=== PATIENT | female | born 1930 | race Caucasian/White ===

== ENCOUNTER 2016-07-21 06:14 | Inpatient (IN) | payer MEDICARE, BC ==
[2016-07-21 06:19] LABS: Glucose,Whole Blood 146 mg/dL (75-99)
--- NOTE | 2016-07-21 06:20 | ED ---
General Adult HPI - General Source: RN notes reviewed <Howie Cloud - Last Filed: 07/21/16 06:28> <Sim Rodriguez - Last Filed: 07/21/16 11:27> - General Stated complaint: poss stroke Time Seen by Provider: 07/21/16 06:15 - History of Present Illness Initial comments: This is an 85-year-old female presents to the emergency department after having been found on the ground. According to family she was altered mentally and she was last seen normal between 8 and 9:00 last evening. Patient is unable to give us any history currently there is no family members there. 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 I could not get the patient to move either leg because she did not understand me. I see no obvious signs of trauma other than the swelling and tenderness to the right elbow. I have no other history at this time. (Howie Cloud) - Related Data Home Medications Medication Instructions Recorded Confirmed Sertraline HCl [Zoloft] 50 mg PO DAILY 11/16/13 07/21/16 Simvastatin [Zocor] 40 mg PO HS 11/16/13 07/21/16 Aspirin 81 mg PO AC-SUPPER 02/03/15 07/21/16 Levothyroxine Sodium [Synthroid] 25 mcg PO HS 02/03/15 07/21/16 Metoprolol Tartrate [Lopressor] 50 mg PO BID 02/03/15 07/21/16 Potassium Chloride ER [K-Dur 20] 20 meq PO DAILY 07/28/15 07/21/16 levETIRAcetam [Levetiracetam] 500 mg PO BID 07/28/15 07/21/16 Fluorometholone [Fml Forte] 5 ml OP DAILY 07/21/16 07/21/16 Hydrocortisone Pr Cream 1 applic RECTAL BID 07/21/16 07/21/16 [Proctosol-Hc 2.5%] Naproxen [Naprosyn] 375 mg PO BID 07/21/16 07/21/16 Previous Rx's Medication Instructions Recorded Furosemide [Lasix] 20 mg PO DAILY #30 tablet 11/20/13 Losartan [Cozaar] 50 mg PO BID #60 tab 11/20/13 Allergies Allergy/AdvReac Type Severity Reaction Status Date / Time codeine Allergy Unknown Verified 07/27/15 20:53 Review of Systems ROS Other: All systems not noted in ROS Statement are negative. <CloudHowie - Last Filed: 07/21/16 06:28> ROS Other: All systems not noted in ROS Statement are negative. <Sim Rodriguez - Last Filed: 07/21/16 11:27> ROS Statement: Those systems with pertinent positive or pertinent negative responses have been documented in the HPI. Past Medical History Past Medical History: Coronary Artery Disease (CAD), Cancer, CVA/TIA, Dementia, Eye Disorder, Hyperlipidemia, Hypertension, Thyroid Disorder Additional Past Medical History / Comment(s): macular degeneration, NO HEARING IN LEFT EAR History of Any Multi-Drug Resistant Organisms: None Reported Past Surgical History: Breast Surgery, Joint Replacement Additional Past Surgical History / Comment(s): left hip replacement, right masectomy Past Psychological History: Depression Smoking Status: Never smoker Past Alcohol Use History: None Reported Past Drug Use History: None Reported - Past Family History Mother History Unknown: Yes <Howie Cloud - Last Filed: 07/21/16 06:28> General Exam <Howie Cloud - Last Filed: 07/21/16 06:28> <Sim Rodriguez - Last Filed: 07/21/16 11:27> - General Exam Comments Initial Comments: GENERAL: Patient is well-developed and well-nourished. Patient is nontoxic and well- hydrated and is in mild distress. ENT: Neck is soft and supple. No significant lymphadenopathy is noted. Oropharynx is clear. Moist mucous membranes. Neck has full range of motion without eliciting any pain. EYES: The sclera were anicteric and conjunctiva were pink and moist. Extraocular movements were intact and pupils were equal round and reactive to light. Eyelids were unremarkable. PULMONARY: Unlabored respirations. Good breath sounds bilaterally. No audible rales rhonchi or wheezing was noted. CARDIOVASCULAR: There is a regular rate and rhythm without any murmurs gallops or rubs. ABDOMEN: Soft and nontender with normal bowel sounds. No palpable organomegaly was noted. There is no palpable pulsatile mass. SKIN: Skin is clear with no lesions or rashes and otherwise unremarkable. NEUROLOGIC: Patient is alert and oriented 0. Difficult to assess motor and sensor because patient does not follow commands and difficult to assess speech. She is not answering my questions. MUSCULOSKELETAL: No lower extremity swelling or edema. No calf tenderness. LYMPHATICS: No significant lymphadenopathy is noted PSYCHIATRIC: Unable to assess (Howie lCoud) Course <Howie Cloud - Last Filed: 07/21/16 06:28> <Sim Rodriguez - Last Filed: 07/21/16 11:27> Vital Signs 07/21/16 07/21/16 07/21/16 06:23 08:02 09:22 Temperature 97.1 F L Pulse Rate 80 82 73 Respiratory 18 18 18 Rate Blood Pressure 195/88 182/83 147/74 O2 Sat by Pulse 99 98 97 Oximetry 07/21/16 10:11 Temperature Pulse Rate 67 Respiratory 18 Rate Blood Pressure 156/75 O2 Sat by Pulse 96 Oximetry - Reevaluation(s) Reevaluation #1: 07/21/16 07:38 Upon arrival back from CAT scan patient does appear to be moving her right side she does complain of right elbow pain. (Sim Rodriguez) Reevaluation #2: 07/21/16 11:24 I did reevaluate patient several occasions and did discuss the findings with her and her daughter. The patient has no idea what happened this morning as far as falling she's not sure that she passed out or slipped or tripped. Patient is more confused than her usual state per the daughter. Patient will be admitted with evaluation by orthopedics. She is demonstrating dehydration. She'll be rehydrated. At this time a sling will be placed to the right upper extremity. (Sim Rodriguez) Medical Decision Making <Howie Cloud - Last Filed: 07/21/16 06:28> - Lab Data Result diagrams: 07/21/16 07:00 07/21/16 07:00 <Sim Rodriguez - Last Filed: 07/21/16 11:27> - Medical Decision Making EKG shows a sinus rhythm with occasional PACs 74 bpm. It was on her 66 QRS is 78 QT interval 396 QTC is 439. Patient's EKG shows no ST segment elevation or depression or T wave abnormalities are noted Dr. Rodriguez be taken over the care of this patient at 7 AM (Howie Cloud) - Lab Data Lab Results 07/21/16 07/21/16 07/21/16 Range/Units 06:18 07:00 07:00 WBC 24.3 H (3.8-10.6) k/uL RBC 6.20 H (3.80-5.40) m/uL Hgb 13.2 (11.4-16.0) gm/dL Hct 42.3 (34.0-46.0) % MCV 68.2 L (80.0-100.0) fL MCH 21.3 L (25.0-35.0) pg MCHC 31.2 (31.0-37.0) g/dL RDW 15.5 (11.5-15.5) % Plt Count 142 L (150-450) k/uL Neutrophils % 88 % Lymphocytes % 6 % Monocytes % 4 % Eosinophils % 1 % Basophils % 0 % Neutrophils # 21.4 H (1.3-7.7) k/uL Lymphocytes # 1.5 (1.0-4.8) k/uL Monocytes # 0.9 (0-1.0) k/uL Eosinophils # 0.1 (0-0.7) k/uL Basophils # 0.1 (0-0.2) k/uL Toxic Granulation Present Large Platelets Present Hypochromasia Moderate Poikilocytosis Slight Microcytosis Marked Tear Drop Cells Present Ovalocytes Present PT (9.0-12.0) sec INR (<1.1) APTT (22.0-30.0) sec Sodium (137-145) mmol/L Potassium (3.5-5.1) mmol/L Chloride (98-107) mmol/L Carbon Dioxide (22-30) mmol/L Anion Gap mmol/L BUN (7-17) mg/dL Creatinine (0.52-1.04) mg/dL Est GFR (MDRD) Af Amer (>60 ml/min/1.73 sqM) Est GFR (MDRD) Non-Af (>60 ml/min/1.73 sqM) Glucose (74-99) mg/dL POC Glucose (mg/dL) 146 H (75-99) mg/dL POC Glu Fire Technology Instructor ID Anger, Alondra Calcium (8.4-10.2) mg/dL Total Bilirubin (0.2-1.3) mg/dL AST (14-36) U/L ALT (9-52) U/L Alkaline Phosphatase (38-126) U/L Total Creatine Kinase 91 (30-135) U/L CK-MB (CK-2) 2.4 (0.0-2.4) ng/mL CK-MB (CK-2) Rel Index 2.6 Troponin I <0.012 (0.000-0.034) ng/mL Total Protein (6.3-8.2) g/dL Albumin (3.5-5.0) g/dL Urine Color Urine Appearance (Clear) Urine pH (5.0-8.0) Ur Specific [place] (1.001-1.035) Urine Protein (Negative) Urine Glucose (UA) (Negative) Urine Ketones (Negative) Urine Blood (Negative) Urine Nitrate (Negative) Urine Bilirubin (Negative) Urine Urobilinogen (<2.0) mg/dL Ur Leukocyte Esterase (Negative) 07/21/16 07/21/16 07/21/16 Range/Units 07:00 07:00 07:10 WBC (3.8-10.6) k/uL RBC (3.80-5.40) m/uL Hgb (11.4-16.0) gm/dL Hct (34.0-46.0) % MCV (80.0-100.0) fL MCH (25.0-35.0) pg MCHC (31.0-37.0) g/dL RDW (11.5-15.5) % Plt Count (150-450) k/uL Neutrophils % % Lymphocytes % % Monocytes % % Eosinophils % % Basophils % % Neutrophils # (1.3-7.7) k/uL Lymphocytes # (1.0-4.8) k/uL Monocytes # (0-1.0) k/uL Eosinophils # (0-0.7) k/uL Basophils # (0-0.2) k/uL Toxic Granulation Large Platelets Hypochromasia Poikilocytosis Microcytosis Tear Drop Cells Ovalocytes PT 11.1 (9.0-12.0) sec INR 1.1 (<1.1) APTT 24.8 (22.0-30.0) sec Sodium 140 (137-145) mmol/L Potassium 4.2 (3.5-5.1) mmol/L Chloride 103 (98-107) mmol/L Carbon Dioxide 22 (22-30) mmol/L Anion Gap 15 mmol/L BUN 27 H (7-17) mg/dL Creatinine 0.83 (0.52-1.04) mg/dL Est GFR (MDRD) Af Amer >60 (>60 ml/min/1.73 sqM) Est GFR (MDRD) Non-Af >60 (>60 ml/min/1.73 sqM) Glucose 147 H (74-99) mg/dL POC Glucose (mg/dL) (75-99) mg/dL POC Glu Fire Technology Instructor ID Calcium 9.7 (8.4-10.2) mg/dL Total Bilirubin 0.8 (0.2-1.3) mg/dL AST 24 (14-36) U/L ALT 34 (9-52) U/L Alkaline Phosphatase 98 (38-126) U/L Total Creatine Kinase (30-135) U/L CK-MB (CK-2) (0.0-2.4) ng/mL CK-MB (CK-2) Rel Index Troponin I (0.000-0.034) ng/mL Total Protein 7.2 (6.3-8.2) g/dL Albumin 4.2 (3.5-5.0) g/dL Urine Color Light Yellow Urine Appearance Clear (Clear) Urine pH 6.0 (5.0-8.0) Ur Specific [place] 1.006 (1.001-1.035) Urine Protein Negative (Negative) Urine Glucose (UA) Negative (Negative) Urine Ketones 1+ H (Negative) Urine Blood Negative (Negative) Urine Nitrate Negative (Negative) Urine Bilirubin Negative (Negative) Urine Urobilinogen <2.0 (<2.0) mg/dL Ur Leukocyte Esterase Negative (Negative) Disposition <Howie Cloud - Last Filed: 07/21/16 06:28> <Sim Rodriguez - Last Filed: 07/21/16 11:27> Clinical Impression: Syncope, Encephalopathy, Elbow fracture, right, Dehydration, Dementia Disposition: ADMITTED IP TO THIS [facility] Condition: Stable
--- NOTE | 2016-07-21 07:06 | CT ---
EXAMINATION TYPE: CT brain wo con DATE OF EXAM: 07/21/2016 6:51 AM COMPARISON: 04/07/2016 HISTORY: fall, neuro deficits CT DLP: 1144.70 mGycm Automated exposure control for dose reduction was used. FINDINGS: No definite depressed skull fracture or significant cephalohematoma is noted. The cortical sulci and ventricles are prominent with age-related atrophic changes of brain. Old infar ction changes with encephalomalacia changes are noted in the bifrontal areas of brain was on the left side. Chronic periventricular white matter ischemic changes are noted bilaterally. Old infarction an d encephalomalacia changes are also noted in the bilateral temporal lobes of brain was on the left si de. There is no acute intracranial hemorrhage, mass effect, or midline shift identified. The globes are intact and the visualized sinuses are clear. Chronic mastoiditis changes are again noted on the right side with possible chronic orchitis media. M ild ethmoid sinusitis changes are also suggested. IMPRESSION: No acute intracranial hemorrhage, mass effect, or midline shift is seen. Severe atrophic changes of brain. Multiple areas of old infarctions in the brain with encephalomalacia changes without significant inte rval change. Chronic mastoiditis and otitis media changes. No significant interval change. If clinical symptoms persist a follow-up in 24 to 48 hours may be helpful.
--- NOTE | 2016-07-21 07:13 | XR ---
EXAMINATION TYPE: XR chest 2V DATE OF EXAM: 07/21/2016 7:07 AM COMPARISON: Chest x-ray April 07, 2016 HISTORY: Fall injury with chest pain. TECHNIQUE: Frontal and lateral views of the chest are obtained. FINDINGS: There is chronic senescent change without suspicious focal air space opacity, pleural effu toma, or pneumothorax seen. The cardiac silhouette size is stable and upper limits of normal with ec tatic aorta causing tracheal deviation redemonstrated. Osseous structures are demineralized. Underlyi ng scoliosis is again seen. IMPRESSION: Chronic parenchymal change without acute pulmonary process.
--- NOTE | 2016-07-21 07:15 | XR ---
EXAMINATION TYPE: XR pelvis AP view DATE OF EXAM: 07/21/2016 7:07 AM CLINICAL HISTORY: Pelvic pain after fall injury. TECHNIQUE: 2 AP portable views of the pelvis are obtained COMPARISON: Pelvic x-ray April 07, 2016 FINDINGS: Large body habitus, portable technique, and diffuse osteopenia makes evaluation suboptimal . There is metallic hardware from left hip total arthroplasty redemonstrated. Heterotopic ossificatio n or chronic ununited fracture fragment along the superior left hip joint is redemonstrated. No visua lized periprosthetic fracture though the distal stem of the prosthesis is excluded from view. There i s moderate to severe degenerative change at the right hip redemonstrated with joint space loss, subch ondral cystic change, and acetabular spurring. No displaced fracture seen. Sacroiliac joints are symm etric and felt within normal limits. Pubic symphysis is maintained. Some fecal prominence at level of rectum is noted. IMPRESSION: There is no acute fracture or dislocation in the pelvis.
--- NOTE | 2016-07-21 07:18 | XR ---
EXAMINATION TYPE: XR elbow complete RT DATE OF EXAM: 07/21/2016 7:07 AM CLINICAL HISTORY: Fall injury with pain. TECHNIQUE: Frontal, lateral and oblique images of the right elbow are obtained. COMPARISON: None FINDINGS: Osseous structures are demineralized. There is comminuted acute minimally displaced supraco ndylar fracture of the distal humerus. Associated abnormal fat pad signs are seen. There is mild to m oderate subcutaneous edema at this level. Proximal radius and ulna are intact. No dislocation is evid ent. IMPRESSION: There is an acute comminuted minimally displaced supracondylar fracture of the distal hu merus. (Initial encounter post traumatic closed fracture)
[2016-07-21 07:34] LABS: Appearance,Urine Clear (Clear); Bilirubin,Urine Negative (Negative); Glucose,Urine (UA) Negative (Negative); Ketones,Urine 1+ (Negative); Leukocyte Esterase,Urine Negative (Negative); Nitrite,Urine Negative (Negative); Protein,Urine Negative (Negative); Specific Gravity,Urine 1.006 (1.001-1.035); UA Billing (MACRO vs. MICRO) CHEM; Urobilinogen,Urine <2.0 mg/dL (<2.0)
[2016-07-21 07:40] LABS: Basophils # (A) 0.1 k/uL (0-0.2); Basophils % (A) 0 %; CH 21.4; CHCM 31.4; Eosinophils # (A) 0.1 k/uL (0-0.7); Eosinophils % (A) 1 %; HCT 42.3 % (34.0-46.0); HDW 3.53; HGB 13.2 gm/dL (11.4-16.0); Hypochromasia Moderate; Luc # (Auto) 0.34; Luc % (Auto) 1; Lymphocytes # (A) 1.5 k/uL (1.0-4.8); Lymphocytes % (A) 6 %; MCH 21.3 pg (25.0-35.0); MCHC 31.2 g/dL (31.0-37.0); MCV 68.2 fL (80.0-100.0); Mean Platelet Volume 7.2; Microcytosis Marked; Monocytes # (A) 0.9 k/uL (0-1.0); Monocytes % (A) 4 %; Neutrophils # (A) 21.4 k/uL (1.3-7.7); Neutrophils % (A) 88 %; Poikilocytosis Slight; RDW 15.5 % (11.5-15.5); WBC 24.3 k/uL (3.8-10.6); WBC (Perox) 25.52
[2016-07-21 07:45] LABS: ALT 34 U/L (9-52); AST 24 U/L (14-36); Alkaline Phosphatase 98 U/L (38-126); Anion Gap 15 mmol/L; Blood Urea Nitrogen 27 mg/dL (7-17); Calcium 9.7 mg/dL (8.4-10.2); Carbon Dioxide 22 mmol/L (22-30); Chloride 103 mmol/L (98-107); Glucose 147 mg/dL (74-99); Non-African American GFR(MDRD) >60 (>60 ml/min/1.73 sqM); Potassium 4.2 mmol/L (3.5-5.1); Sodium 140 mmol/L (137-145); Total Bilirubin 0.8 mg/dL (0.2-1.3); Total Protein 7.2 g/dL (6.3-8.2)
[2016-07-21 07:48] LABS: INR 1.1 (<1.1); Partial Thromboplastin Time 24.8 sec (22.0-30.0); Prothrombin Time 11.1 sec (9.0-12.0)
[2016-07-21 07:58] LABS: Creatine Kinase 91 U/L (30-135)
[2016-07-21 08:12] LABS: Creatine Kinase MB 2.4 ng/mL (0.0-2.4); Troponin I <0.012 ng/mL (0.000-0.034)
[2016-07-21 08:18] LABS: Ovalocytes Present; Tear Drop Cells Present
[2016-07-21 08:19] LABS: Large Platelets Present; Toxic Granulation Present
[2016-07-21] MEDS ORDERED: NALOXONE 0.4 MG/ML 1 ML VIAL IV PRN (11:27)
[2016-07-21] MEDS ORDERED: ACETAMINOPHEN TAB 325 MG TAB PO PRN (11:27)
[2016-07-21] MEDS ORDERED: SODIUM CHLORIDE 0.9% 1,000 ML IV SCH (11:30)
[2016-07-21] MEDS: SODIUM CHLORIDE 0.9% 1,000 ML IV SCH (14:15)
--- NOTE | 2016-07-21 14:59 | P.CNOR ---
History of Present Illness - [facility] Consult date: 07/21/16 Consult reason: fracture History of present illness: The patient is an 85-year-old female who is currently admitted following a fall to internal medicine. She is a previously established patient of Dr. Ramirez in my office was performed a right total hip replacement and has been managing left hip arthritis. The patient is accompanied at bedside by her daughter who provides the history. According to the patient's daughter the patient, who lives alone, was trying to get back into bed and fell. The patient's daughter says that she used a dining chair to try to get back into bed. She was brought to the emergency department and admitted to internal medicine. At the time of my consultation she is complaining of isolated right elbow pain. The patient's daughter states that she appears confused. They have no other complaints. 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 History of Any Multi-Drug Resistant Organisms: None Reported Past Surgical History: Breast Surgery, Hysterectomy, Joint Replacement Additional Past Surgical History / Comment(s): left hip replacement, right masectomy Past Anesthesia/Blood Transfusion Reactions: No Reported Reaction Past Psychological History: Depression Smoking Status: Never smoker Past Alcohol Use History: None Reported Past Drug Use History: None Reported - Past Family History Mother History Unknown: Yes Medications and Allergies Home Medications Medication Instructions Recorded Confirmed Type Sertraline HCl [Zoloft] 50 mg PO DAILY 11/16/13 07/21/16 History Simvastatin [Zocor] 40 mg PO HS 11/16/13 07/21/16 History Aspirin 81 mg PO Q48H 02/03/15 07/21/16 History Metoprolol Tartrate [Lopressor] 50 mg PO BID 02/03/15 07/21/16 History Potassium Chloride ER [K-Dur 20] 20 meq PO DAILY 07/28/15 07/21/16 History levETIRAcetam [Levetiracetam] 500 mg PO BID 07/28/15 07/21/16 History Fluorometholone [Fml Forte] 5 ml OP DAILY 07/21/16 07/21/16 History Hydrocortisone Pr Cream 1 applic RECTAL BID 07/21/16 07/21/16 History [Proctosol-Hc 2.5%] Levothyroxine Sodium [Synthroid] 25 mcg PO DAILY 07/21/16 07/21/16 History Naproxen [Naprosyn] 375 mg PO BID 07/21/16 07/21/16 History Allergies Allergy/AdvReac Type Severity Reaction Status Date / Time codeine Allergy Unknown Verified 07/21/16 11:49 Physical Examination On exam the patient is in no apparent distress. She is slightly confused and is only able to answer questions with yes or no. Her head is normocephalic and atraumatic. She has no tenderness down her cervical or thoracic spine. She has a sling in place over her right arm. She demonstrates nonlabored breathing with symmetric chest expansion. Her abdomen is nontender. On examination of her left upper extremity there are no obvious deformities. On examination of the lower extremities there are no obvious deformities and no tenderness to palpation to both the right and left leg. A focused exam the right upper extremity was conducted. The sling was taken off and the arm was inspected. There is diffuse ecchymosis over the elbow but no open wounds. The patient has no tenderness over her right clavicle shoulder or arm. There is exquisite tenderness over the elbow. The arm and forearm are soft. She has no tenderness over her distal radius. Sensation is intact to light touch in the right arm in the distribution of the median, ulnar, and radial nerves. She is motor intact in her right arm. Results X-rays of the patient's right elbow show a minimally displaced, low transcondylar distal humerus fracture. - Labs Result Diagrams: 07/21/16 07:00 07/21/16 07:00 Assessment and Plan (1) Elbow fracture, right Status: Acute Plan: The patient has a closed, low transcondylar distal humerus fracture. I discussed different treatment options with the patient's daughter including nonoperative and operative management. Due to the patient's age, baseline level of function, and minimal displacement on x-rays I recommended an initial attempt at non-operative treatment. The patient was placed in a posterior elbow splint with the elbow at 90. She was placed back in a sling. The patient is to remain nonweightbearing on her right arm in the sling at all times. After discharge the patient will need close x-ray follow-up to nature there is no interval displacement. I would like to see her in the office 1 week following discharge for repeat x-rays. Time with Patient: Greater than 30
--- NOTE | 2016-07-21 16:15 | HP ---
DATE OF ADMISSION: CHIEF COMPLAINT: Fall at home. HISTORY OF PRESENT ILLNESS: An 85-year-old female was admitted to the hospital after evaluation in the emergency room. The patient had a fall at home, was found on the floor this morning by the son-in-law. The patient has a First Alert to which she did not respond and thus the son-in-law was checking on him. Patient was alert. She has underlying dementia, so some confusion. The family has noted some increased confusion lately. It is not exactly clear how the patient fell or whether she passed out or not. Patient is not able to give that history. Her son-in-law said the patient had moved his seat from the chair, put in on the floor and her knees were resting on that. One elbow one the bed and one elbow on side table. She has sustained a right elbow fracture. It is probable that the patient fell first, fractured her shoulder and then subsequently got up, but she could not get into the bed because it was a little on the high side. Denies any headaches or any dizziness. Past medical history is significant for mild dementia, hypertension, previous carcinoma of the breast of more than 20 years ago, previous left hip arthroplasty and has significant arthritis in the right hip. Past history is negative for any cardiac history. No stroke, no lung disease, liver disease, kidney disease, ulcers, TB, hepatitis. No history of any rheumatic fever, myocardial infarction or CVA. Has had an episode of TIA and has been told she has got a small blood vessel at the back of the brain. Past surgical history is significant for a left total hip arthroplasty x2, left leg is slightly shorter than the right on a chronic basis. The patient has significant degenerative arthritis right hip. Patient has had a previous right mastectomy and a hysterectomy. PERSONAL HISTORY: Never a smoker. Alcohol none. ALLERGIES: Sensitive to CODEINE. Medications include: 1. Levetiracetam 500 mg b.i.d. 2. Zocor 40 mg daily. 3. Sertraline 50 mg daily. 4. Potassium 20 mEq daily. 5. Naproxen 375 b.i.d. 6. Metoprolol 50 mg b.i.d. 7. Losartan 50 mg b.i.d. 8. Levothyroxine 25 mcg daily. 9. Hydrocortisone cream p.r.n. 10. Lasix 20 mg daily. 11. Fluorometholone 5 mL daily. 12. Aspirin 81 mg daily. SOCIAL HISTORY: The patient is , lives alone, daughter lives close by and checks on her daily and as-needed basis. Functional status, patient ambulatory at home. She does have issues with her short-term memory but long-term memory is good. REVIEW OF SYSTEMS: NEURO: Denies any headaches, dizziness. No double vision, blurred vision. No symptoms of syncope elicited. Present symptom of fall. CARDIAC: Denies chest pain, angina, palpitation. RESPIRATORY: Denies shortness of breath, cough, hemoptysis. GI: No nausea, vomiting, abdominal pain, diarrhea. : No symptoms of dysuria, hematuria, history of recurrent urinary tract infections. EXTREMITIES: Pain right elbow, right hip. CONSTITUTIONAL: No fever, chills. HEMATOLOGICAL: No anemia or bleeding disorder. ENDOCRINE: No history of diabetes mellitus, history of hypothyroidism on replacement therapy. HEMATOLOGIC: No anemia or bleeding disorder. ENT: Adequate hearing, smell, taste. EYES: Adequate vision. PHYSICAL EXAMINATION: Pleasant female in no distress. Vital signs reveal temperature 98.8, pulse 71, respirations 18, blood pressure was 180/83. At the time of ER visit, temperature was 97.1, blood pressure 195/88. HEENT: Normocephalic. No evidence of external trauma. Pupils reactive. Nostrils clear. Oral cavity is moist. Partial dentition present. Ears reveal no drainage. Neck reveals no JVD, carotid bruits, or thyromegaly. Chest is clear to auscultation. CARDIAC: Normal S1, S2 with no gallops. Occasional irregular beat, no murmurs appreciated. Abdomen is soft, no palpable masses. Bowel sounds normal. No organomegaly. No abdominal bruits. Extremities reveal trace edema, right more than left. Pedal pulse is mildly decreased. Left leg is slightly shorter. Neurologically awake, alert, oriented to place and recognizes her family. Moves left upper arm appropriately. Right in a splint. Lower extremities, patient able to move them freely. Plantars are bilaterally downgoing. LABORATORY ASSESSMENT: White count of 24.3, hemoglobin is 13.2, platelets 142. Electrolytes normal. BUN 27, creatinine 0.83. Hepatic and cardiac enzymes normal. Urine 1+ ketones, otherwise unremarkable. Radiological studies include a brain CT with no acute fractures, severe atrophic changes, old infarction of brain with encephalomalacia, chronic mastoiditis changes at present. Chest x-ray, chronic changes. X-ray of the elbow reveals acute comminuted minimally displaced supracondylar fracture of the distal humerus. No pelvic fractures. EKG reveals PACs. ASSESSMENT: 1. Fall at home. 2. Possible syncopal episode. 3. Hypertension. 4. Dementia. 5. Leukocytosis with no clear evidence of infection. 6. Remote history of carcinoma of the breast. PLAN: Patient admitted to the hospital and will be hydrated. Repeat patient's CBC in the morning. If the leukocytosis is fracture related causing stress, then they should improve. The patient's previous headaches had shown also elevated white count. The patient has mildly decreased platelet count as well. Patient's condition discussed with the family. Patient is going to require placement at least temporarily. Ortho to review the patient. Prognosis remains guarded.
[2016-07-21] MEDS: ASPIRIN 81 MG CHEW PO SCH (17:39)
[2016-07-21] MEDS ORDERED: LEVOTHYROXINE 25 MCG TAB PO SCH (21:00)
[2016-07-21] MEDS: ATORVASTATIN 20 MG TAB PO SCH (21:29)
[2016-07-21] MEDS: LOSARTAN 50 MG TAB PO SCH (21:29)
[2016-07-21] MEDS: NAPROXEN 250 MG TAB PO SCH (21:29)
[2016-07-21] MEDS: METOPROLOL TARTRATE 50 MG TAB PO SCH (21:29)
[2016-07-21] MEDS: HEPARIN SODIUM,PORCINE 5,000 UNIT/ML 1 ML VIAL SQ SCH (21:29)
[2016-07-21] MEDS: levETIRAcetam 500 MG TAB PO SCH (21:30)
[2016-07-22] MEDS: SODIUM CHLORIDE 0.9% 1,000 ML IV SCH ×2 (03:58→15:58)
[2016-07-22] MEDS: LEVOTHYROXINE 25 MCG TAB PO SCH (06:17)
--- NOTE | 2016-07-22 07:45 | P.PN ---
Progress Note - Text The patient is an 85-year-old female who was admitted yesterday after a fall at home in which she suffered a fractured distal right humerus. Patient does have history of mild dementia with a previous closed head injury along with hypertension and breast carcinoma. She does have arthritic concerns and previous left hip surgery. She presently resides by herself with help from her daughter. Patient has been seen by orthopedic surgery. She is alert this morning. She knows she is in the hospital although thinks she is at [facility]. She denies any chest pain or shortness of breath. No nausea or vomiting. She does remember my name. She does not appear to be in any distress. Temperature is 98.1 with a respirations of 18 and a pulse of 77 and regular. Blood pressure 119/60 and she is 96% on 2 L. Head and neck exam unremarkable. Lung and heart exam clear and regular. Abdomen is soft and nontender. No unusual lower edema. Pneumatic stockings in place. She does have a cast on the right arm but no focal deficits. Results of repeat laboratory values are pending. She did have an elevated white count of 24,000 on presentation yesterday. Once again on x-ray patient has been shown to have a distal humeral fracture on the right. Impressions and plans: Patient has been seen by orthopedics and it appears that conservative management with first attempt at nonoperative treatment. Patient will likely need further placement at discharge and this was discussed with patient. Patient desires to return to her home and this does not seem to be in her best interest. Consultations have been placed with physical and occupational therapies. Also repeat labs are pending to follow up on general chemistries and cell counts. Also consult to social service for discharge planning as hopefully patient will be ready over the next 24-48 hours.
[2016-07-22] MEDS ORDERED: FLUOROMETHOLONE OP SCH (09:00)
[2016-07-22] MEDS: POTASSIUM CHLORIDE ER 20 MEQ TAB.ER PO SCH (09:24)
[2016-07-22] MEDS: NAPROXEN 250 MG TAB PO SCH ×2 (09:24→21:48)
[2016-07-22] MEDS: FUROSEMIDE 20 MG TAB PO SCH (09:25)
[2016-07-22] MEDS: SERTRALINE 50 MG TAB PO SCH (09:25)
[2016-07-22] MEDS: HEPARIN SODIUM,PORCINE 5,000 UNIT/ML 1 ML VIAL SQ SCH ×2 (09:25→21:47)
[2016-07-22] MEDS: LOSARTAN 50 MG TAB PO SCH ×2 (09:25→21:47)
[2016-07-22] MEDS: levETIRAcetam 500 MG TAB PO SCH ×2 (09:25→21:47)
[2016-07-22] MEDS: METOPROLOL TARTRATE 50 MG TAB PO SCH ×2 (09:25→21:47)
[2016-07-22 09:31] LABS: Anisocytosis Slight; Basophils # (A) 0.1 k/uL (0-0.2); Basophils % (A) 0 %; CH 21.6; Eosinophils # (A) 0.1 k/uL (0-0.7); Eosinophils % (A) 1 %; HCT 36.7 % (34.0-46.0); HGB 11.2 gm/dL (11.4-16.0); Hypochromasia Marked; Luc # (Auto) 0.15; Luc % (Auto) 1; Lymphocytes # (A) 1.3 k/uL (1.0-4.8); Lymphocytes % (A) 10 %; MCH 21.3 pg (25.0-35.0); MCHC 30.4 g/dL (31.0-37.0); MCV 69.9 fL (80.0-100.0); Mean Platelet Volume 8.7; Microcytosis Marked; Monocytes # (A) 0.7 k/uL (0-1.0); Monocytes % (A) 6 %; Neutrophils # (A) 10.7 k/uL (1.3-7.7); Neutrophils % (A) 82 %; RBC 5.25 m/uL (3.80-5.40); RDW 16.2 % (11.5-15.5); WBC (Perox) 13.52
[2016-07-22 09:44] LABS: Anion Gap 10 mmol/L; Blood Urea Nitrogen 18 mg/dL (7-17); Calcium 8.5 mg/dL (8.4-10.2); Carbon Dioxide 23 mmol/L (22-30); Chloride 109 mmol/L (98-107); Glucose 106 mg/dL (74-99); Non-African American GFR(MDRD) >60 (>60 ml/min/1.73 sqM); Potassium 4.2 mmol/L (3.5-5.1); Sodium 142 mmol/L (137-145)
[2016-07-22] MEDS ORDERED: PNEUMOCOCCAL VACC-PNEUMOVAX 23 25 MCG/0.5 ML VIAL IM ONE (11:28)
[2016-07-22] MEDS ORDERED: INFLUENZA VACCINE (3YR+) 60 MCG/0.5 ML SYRINGE IM ONE (11:28)
[2016-07-22] MEDS: ASPIRIN 81 MG CHEW PO SCH (16:55)
[2016-07-22] MEDS: ATORVASTATIN 20 MG TAB PO SCH (21:47)
[2016-07-23] MEDS ORDERED: DONEPEZIL 5 MG TAB PO STA (07:52)
--- NOTE | 2016-07-23 07:53 | P.DS ---
Providers Date of admission: 07/21/16 11:27 Attending physician: Tien Kaur Primary care physician: Tien Kaur The patient is an 85-year-old female who suffered a fall at home and was brought in by EMS and after subsequent x-rays was found to have a fractured distal right humerus. Initial workup for her fall with EKG and labs revealed her to be in normal sinus rhythm without acute ischemic changes. Other laboratory values revealed elevated white count of 24,000 but cardiac labs with CKs and troponins were within normal limits. Subsequent radiologic evaluations with her presentation were essentially negative with brain CAT scan and chest x- ray. The x-ray of elbow though did reveal a acute comminuted minimally displaced supracondylar fracture of the distal humerus. Patient was hydrated and analgesics given. Follow-up CBC revealed decrease of her white count on the 13,000. Patient was evaluated by orthopedics Dr. Peoples. He discussed with patient and daughter operative and nonoperative management. It was overall felt that in her present condition and age than an attempt at nonoperable treatment with posterior elbow splint with elbow at 90 and a sling along with nonweightbearing on the right arm would be in order and he would follow-up as an outpatient. Patient did receive physical and occupational therapies. They are recommending subacute rehab placement. Discharge planning is involved. Patient does have multiple comorbidities which include Alzheimer's dementia late onset. Previous remote history of closed head injury. History of hypertension History of breast cancer Degenerative joint disease and previous left hip surgery. Hyperlipidemia Depression On medication for seizure prevention with Keppra since history of closed head injury. Hypothyroidism on replacement therapy. Discharge medications: Acetaminophen 650 mg every 6 hours when necessary for pain. Aspirin 81 mg daily. Atorvastatin 20 mg daily. Furosemide 20 mg daily. Levothyroxine 25 g daily. Losartan 50 mg twice a day. Metoprolol 50 mg twice a day. Naproxen 375 mg by mouth twice a day Potassium chloride 20 mEq daily. Sertraline 50 mg daily. Keppra 500 mg twice a day. Aricept 5 mg daily. Continue with physical and occupational therapies. Diet and activities as tolerated. Long-term prognosis is guarded. Patient Condition at Discharge: Stable Plan - Discharge Summary Discharge Medication List Sertraline HCl [Zoloft] 50 mg PO DAILY 11/16/13 [History] Simvastatin [Zocor] 40 mg PO HS 11/16/13 [History] Furosemide [Lasix] 20 mg PO DAILY #30 tablet 11/20/13 [Rx] Losartan [Cozaar] 50 mg PO BID #60 tab 11/20/13 [Rx] Aspirin 81 mg PO Q48H 02/03/15 [History] Metoprolol Tartrate [Lopressor] 50 mg PO BID 02/03/15 [History] Potassium Chloride ER [K-Dur 20] 20 meq PO DAILY 07/28/15 [History] levETIRAcetam [Levetiracetam] 500 mg PO BID 07/28/15 [History] Fluorometholone [Fml Forte] 5 ml OP DAILY 07/21/16 [History] Hydrocortisone Pr Cream [Proctosol-Hc 2.5%] 1 applic RECTAL BID 07/21/16 [ History] Levothyroxine Sodium [Synthroid] 25 mcg PO DAILY 07/21/16 [History] Naproxen [Naprosyn] 375 mg PO BID 07/21/16 [History] Follow up Appointment(s)/Referral(s): Tien Kaur MD [Primary Care Provider] - 1-2 days
[2016-07-23] MEDS: SERTRALINE 50 MG TAB PO SCH (08:37)
[2016-07-23] MEDS: LEVOTHYROXINE 25 MCG TAB PO SCH (08:37)
[2016-07-23] MEDS: LOSARTAN 50 MG TAB PO SCH ×2 (08:37→20:36)
[2016-07-23] MEDS: NAPROXEN 250 MG TAB PO SCH ×2 (08:38→20:36)
[2016-07-23] MEDS: FUROSEMIDE 20 MG TAB PO SCH (08:38)
[2016-07-23] MEDS: METOPROLOL TARTRATE 50 MG TAB PO SCH ×2 (08:38→20:36)
[2016-07-23] MEDS: HEPARIN SODIUM,PORCINE 5,000 UNIT/ML 1 ML VIAL SQ SCH ×2 (08:39→20:36)
[2016-07-23] MEDS: levETIRAcetam 500 MG TAB PO SCH ×2 (08:39→20:36)
[2016-07-23] MEDS: POTASSIUM CHLORIDE ER 20 MEQ TAB.ER PO SCH (08:39)
[2016-07-23] MEDS: SODIUM CHLORIDE 0.9% 1,000 ML IV SCH ×2 (08:46→20:35)
[2016-07-23] MEDS: ASPIRIN 81 MG CHEW PO SCH (17:58)
[2016-07-23] MEDS: ATORVASTATIN 20 MG TAB PO SCH (20:36)
[2016-07-24] MEDS: LEVOTHYROXINE 25 MCG TAB PO SCH (06:32)
[2016-07-24] MEDS: SODIUM CHLORIDE 0.9% 1,000 ML IV SCH (07:38)
[2016-07-24 07:49] VITALS: BP 144/77; PULSE 70; RESP 20; TEMP 98
--- NOTE | 2016-07-24 08:15 | P.PN ---
Progress Note - Text The patient is a 85-year-old female who had a fall at home and was brought by EMS to the hospital and found to have a fractured distal right humerus. Presently she has been receiving physical and occupational therapy and at this time needs subacute rehab extended care placement. This morning patient is found up in bed trying to eat her breakfast. She appears somewhat fatigued but overall alert. Denies any unusual shortness of breath or chest pain. Temperature is 98 with a pulse of 70 and respirations are 20. Blood pressure 144/77 and she is under percent saturated on 2 L. Lung and heart exam was clear and regular. Abdomen is soft and nontender. No unusual edema. No new focal neurological deficits. Right arm remains in a splint. No new diagnostic tests. At this time we're waiting discharge planning for discharge to extended care facility. Please refer to discharge summary dictated previously for meds and orders.
[2016-07-24] MEDS: FUROSEMIDE 20 MG TAB PO SCH (09:40)
[2016-07-24] MEDS: SERTRALINE 50 MG TAB PO SCH (09:40)
[2016-07-24] MEDS: POTASSIUM CHLORIDE ER 20 MEQ TAB.ER PO SCH (09:40)
[2016-07-24] MEDS: HEPARIN SODIUM,PORCINE 5,000 UNIT/ML 1 ML VIAL SQ SCH (09:40)
[2016-07-24] MEDS: METOPROLOL TARTRATE 50 MG TAB PO SCH (09:41)
[2016-07-24] MEDS: NAPROXEN 250 MG TAB PO SCH (09:41)
[2016-07-24] MEDS: levETIRAcetam 500 MG TAB PO SCH (09:42)
[2016-07-24] MEDS: LOSARTAN 50 MG TAB PO SCH (09:42)
== END 2016-07-24 12:29 | DRG 563 ==
LOC: EC 06:14 → 4MS4W 11:27
PROVIDERS: ADMIT Internal Medicine; ATTEND Internal Medicine
DX: S42.474A Nondisplaced transcondylar fracture of right humerus, initial encounter for closed fracture (principal); E86.0 Dehydration; G30.1 Alzheimer's disease with late onset; F02.80 Dementia in other diseases classified elsewhere, unspecified severity, without behavioral disturbance, psychotic disturbance, mood disturbance, and anxiety; E78.5 Hyperlipidemia, unspecified; D72.829 Elevated white blood cell count, unspecified; H35.30 Unspecified macular degeneration; I10 Essential (primary) hypertension; I25.10 Atherosclerotic heart disease of native coronary artery without angina pectoris; M16.11 Unilateral primary osteoarthritis, right hip; F32.9 Major depressive disorder, single episode, unspecified; E03.9 Hypothyroidism, unspecified; H91.92 Unspecified hearing loss, left ear; Z79.82 Long term (current) use of aspirin; Z79.899 Other long term (current) drug therapy; Z85.3 Personal history of malignant neoplasm of breast; Z88.5 Allergy status to narcotic agent; Z96.642 Presence of left artificial hip joint; W19.XXXA Unspecified fall, initial encounter; Y92.009 Unspecified place in unspecified non-institutional (private) residence as the place of occurrence of the external cause
CPT/HCPCS: 36415; 70450; 71020; 72170; 80048; 80053; 81003; 82550; 82553; 84484; 85025; 85610; 85730; 93005; 99285

== ENCOUNTER 2016-12-30 11:45 | Observation (INO) | payer MEDICARE, BC ==
[2016-12-30] MEDS ORDERED: SODIUM CHLORIDE 0.9% 1,000 ML IV STA ×2 (11:57)
--- NOTE | 2016-12-30 12:10 | ED ---
General Adult HPI - General Chief complaint: Recheck/Abnormal Lab/Rx Stated complaint: confusion Time Seen by Provider: 12/30/16 11:48 Source: patient, RN notes reviewed, old records reviewed Mode of arrival: ambulatory Limitations: altered mental status - History of Present Illness Initial comments: This is a 86-year-old female here for evaluation. Patient sent in from care facility for evaluation regarding elevated blood pressure, argumentative and combative, dark stools. Patient is also noted per staff to have hematoma as well as increased confusion. Patient sent to ER for evaluation, no blood thinners, no known history of fall. Patient is poor historian - Related Data Home Medications Medication Instructions Recorded Confirmed Sertraline HCl [Zoloft] 50 mg PO DAILY 11/16/13 12/30/16 Aspirin 81 mg PO Q48H 02/03/15 12/30/16 Metoprolol Tartrate [Lopressor] 50 mg PO BID 02/03/15 12/30/16 Potassium Chloride ER [K-Dur 20] 20 meq PO DAILY 07/28/15 12/30/16 levETIRAcetam [Levetiracetam] 500 mg PO BID 07/28/15 12/30/16 Levothyroxine Sodium [Synthroid] 25 mcg PO DAILY 07/21/16 12/30/16 Naproxen [Naprosyn] 375 mg PO BID 07/21/16 12/30/16 Atorvastatin [Lipitor] 20 mg PO HS 12/30/16 12/30/16 LORazepam [Ativan] 0.5 mg PO DAILY 12/30/16 12/30/16 Previous Rx's Medication Instructions Recorded Furosemide [Lasix] 20 mg PO DAILY #30 tablet 11/20/13 Losartan [Cozaar] 50 mg PO BID #60 tab 11/20/13 Allergies Allergy/AdvReac Type Severity Reaction Status Date / Time codeine Allergy Unknown Verified 12/30/16 13:57 Review of Systems ROS Statement: Those systems with pertinent positive or pertinent negative responses have been documented in the HPI. ROS Other: All systems not noted in ROS Statement are negative. 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 History of Any Multi-Drug Resistant Organisms: None Reported Past Surgical History: Breast Surgery, Hysterectomy, Joint Replacement Additional Past Surgical History / Comment(s): left hip replacement, right masectomy Past Anesthesia/Blood Transfusion Reactions: No Reported Reaction Past Psychological History: Depression Smoking Status: Never smoker Past Alcohol Use History: None Reported Past Drug Use History: None Reported - Past Family History Mother History Unknown: Yes General Exam Limitations: altered mental status General appearance: alert, in no apparent distress Head exam: Present: atraumatic, normocephalic, normal inspection Eye exam: Present: normal appearance, PERRL, EOMI. Absent: scleral icterus, conjunctival injection, periorbital swelling ENT exam: Present: normal exam, mucous membranes moist Neck exam: Present: normal inspection. Absent: tenderness, meningismus, lymphadenopathy Respiratory exam: Present: normal lung sounds bilaterally. Absent: respiratory distress, wheezes, rales, rhonchi, stridor Cardiovascular Exam: Present: regular rate, normal rhythm, normal heart sounds. Absent: systolic murmur, diastolic murmur, rubs, gallop, clicks GI/Abdominal exam: Present: soft, normal bowel sounds. Absent: distended, tenderness, guarding, rebound, rigid Extremities exam: Present: normal inspection, full ROM, normal capillary refill. Absent: tenderness, pedal edema, joint swelling, calf tenderness Back exam: Present: normal inspection Neurological exam: Present: alert, oriented X3, CN II-XII intact Psychiatric exam: Present: normal affect, normal mood Skin exam: Present: warm, dry, intact, normal color. Absent: rash Course Vital Signs 12/30/16 12/30/16 11:54 13:49 Temperature 97.4 F L 98.6 F Pulse Rate 69 67 Respiratory 18 16 Rate Blood Pressure 240/109 205/100 O2 Sat by Pulse 97 96 Oximetry - Reevaluation(s) Reevaluation #1: 12/30/16 14:33 Patient's in no acute distress, argumentative, dementia but at baseline EKG Findings - EKG Comments: EKG Findings:: EKG shows normal sinus rhythm rate of 65, ID 170, QRS 82, QTC 432 Medical Decision Making - Medical Decision Making A 6 female in the ER for evaluation of black tarry stools, elevated blood pressure, dehydration, patient be admitted for rehydration GI evaluation, monitoring of hemoglobin, she also head trauma with no traumatic injury - Lab Data Result diagrams: 12/30/16 12:12 12/30/16 12:12 Lab Results 12/30/16 12/30/16 12/30/16 Range/Units 12:12 12:12 12:12 WBC 15.1 H (3.8-10.6) k/uL RBC 5.97 H (3.80-5.40) m/uL Hgb 12.7 (11.4-16.0) gm/dL Hct 42.4 (34.0-46.0) % MCV 71.1 L (80.0-100.0) fL MCH 21.3 L (25.0-35.0) pg MCHC 30.0 L (31.0-37.0) g/dL RDW 19.7 H (11.5-15.5) % Plt Count 143 L (150-450) k/uL Neutrophils % 82 % Lymphocytes % 9 % Monocytes % 4 % Eosinophils % 2 % Basophils % 0 % Neutrophils # 12.4 H (1.3-7.7) k/uL Lymphocytes # 1.3 (1.0-4.8) k/uL Monocytes # 0.7 (0-1.0) k/uL Eosinophils # 0.4 (0-0.7) k/uL Basophils # 0.1 (0-0.2) k/uL Hypochromasia Marked Anisocytosis Slight Microcytosis Marked PT (9.0-12.0) sec INR (<1.1) APTT (22.0-30.0) sec Sodium 141 (137-145) mmol/L Potassium 4.7 (3.5-5.1) mmol/L Chloride 108 H (98-107) mmol/L Carbon Dioxide 22 (22-30) mmol/L Anion Gap 11 mmol/L BUN 20 H (7-17) mg/dL Creatinine 0.56 (0.52-1.04) mg/dL Est GFR (MDRD) Af Amer >60 (>60 ml/min/1.73 sqM) Est GFR (MDRD) Non-Af >60 (>60 ml/min/1.73 sqM) Glucose 123 H (74-99) mg/dL Calcium 8.7 (8.4-10.2) mg/dL Phosphorus 3.7 (2.5-4.5) mg/dL Magnesium 1.8 (1.6-2.3) mg/dL Total Bilirubin 0.7 (0.2-1.3) mg/dL AST 35 (14-36) U/L ALT 20 (9-52) U/L Alkaline Phosphatase 78 (38-126) U/L Total Creatine Kinase <20 L (30-135) U/L CK-MB (CK-2) 0.6 (0.0-2.4) ng/mL CK-MB (CK-2) Rel Index 0.0 Troponin I <0.012 (0.000-0.034) ng/mL Total Protein 6.6 (6.3-8.2) g/dL Albumin 3.7 (3.5-5.0) g/dL Urine Color Urine Appearance (Clear) Urine pH (5.0-8.0) Ur Specific [place] (1.001-1.035) Urine Protein (Negative) Urine Glucose (UA) (Negative) Urine Ketones (Negative) Urine Blood (Negative) Urine Nitrite (Negative) Urine Bilirubin (Negative) Urine Urobilinogen (<2.0) mg/dL Ur Leukocyte Esterase (Negative) Urine WBC (0-5) /hpf Ur Squamous Epith Cells (0-4) /hpf Urine Mucus (None) /hpf 12/30/16 12/30/16 Range/Units 12:12 12:27 WBC (3.8-10.6) k/uL RBC (3.80-5.40) m/uL Hgb (11.4-16.0) gm/dL Hct (34.0-46.0) % MCV (80.0-100.0) fL MCH (25.0-35.0) pg MCHC (31.0-37.0) g/dL RDW (11.5-15.5) % Plt Count (150-450) k/uL Neutrophils % % Lymphocytes % % Monocytes % % Eosinophils % % Basophils % % Neutrophils # (1.3-7.7) k/uL Lymphocytes # (1.0-4.8) k/uL Monocytes # (0-1.0) k/uL Eosinophils # (0-0.7) k/uL Basophils # (0-0.2) k/uL Hypochromasia Anisocytosis Microcytosis PT 11.3 (9.0-12.0) sec INR 1.1 (<1.1) APTT 24.4 (22.0-30.0) sec Sodium (137-145) mmol/L Potassium (3.5-5.1) mmol/L Chloride (98-107) mmol/L Carbon Dioxide (22-30) mmol/L Anion Gap mmol/L BUN (7-17) mg/dL Creatinine (0.52-1.04) mg/dL Est GFR (MDRD) Af Amer (>60 ml/min/1.73 sqM) Est GFR (MDRD) Non-Af (>60 ml/min/1.73 sqM) Glucose (74-99) mg/dL Calcium (8.4-10.2) mg/dL Phosphorus (2.5-4.5) mg/dL Magnesium (1.6-2.3) mg/dL Total Bilirubin (0.2-1.3) mg/dL AST (14-36) U/L ALT (9-52) U/L Alkaline Phosphatase (38-126) U/L Total Creatine Kinase (30-135) U/L CK-MB (CK-2) (0.0-2.4) ng/mL CK-MB (CK-2) Rel Index Troponin I (0.000-0.034) ng/mL Total Protein (6.3-8.2) g/dL Albumin (3.5-5.0) g/dL Urine Color Light Yellow Urine Appearance Clear (Clear) Urine pH 5.5 (5.0-8.0) Ur Specific [place] 1.008 (1.001-1.035) Urine Protein Negative (Negative) Urine Glucose (UA) Negative (Negative) Urine Ketones Negative (Negative) Urine Blood Negative (Negative) Urine Nitrite Negative (Negative) Urine Bilirubin Negative (Negative) Urine Urobilinogen <2.0 (<2.0) mg/dL Ur Leukocyte Esterase Trace H (Negative) Urine WBC 1 (0-5) /hpf Ur Squamous Epith Cells <1 (0-4) /hpf Urine Mucus Rare H (None) /hpf - Radiology Data Radiology results: report reviewed (CT brain C5 patient was negative for traumatic injury, chest x-ray pelvis x-ray negative for acute disease, actually KUB shows possible constipation), image reviewed Disposition Clinical Impression: Dehydration, Melena, GIB (gastrointestinal bleeding) Disposition: ADMITTED IP TO THIS HOSP Condition: Fair Referrals: None,Stated [Primary Care Provider] - 1-2 days
[2016-12-30 12:36] LABS: Anisocytosis Slight; Basophils # (A) 0.1 k/uL (0-0.2); Basophils % (A) 0 %; CH 20.9; CHCM 29.5; Eosinophils # (A) 0.4 k/uL (0-0.7); Eosinophils % (A) 2 %; HCT 42.4 % (34.0-46.0); HDW 2.92; HGB 12.7 gm/dL (11.4-16.0); Hypochromasia Marked; Luc # (Auto) 0.37; Luc % (Auto) 2; Lymphocytes # (A) 1.3 k/uL (1.0-4.8); Lymphocytes % (A) 9 %; MCH 21.3 pg (25.0-35.0); MCV 71.1 fL (80.0-100.0); Microcytosis Marked; Monocytes # (A) 0.7 k/uL (0-1.0); Monocytes % (A) 4 %; Neutrophils # (A) 12.4 k/uL (1.3-7.7); Neutrophils % (A) 82 %; RBC 5.97 m/uL (3.80-5.40); RDW 19.7 % (11.5-15.5); WBC 15.1 k/uL (3.8-10.6); WBC (Perox) 14.95
[2016-12-30 12:39] LABS: Appearance,Urine Clear (Clear); Bilirubin,Urine Negative (Negative); Glucose,Urine (UA) Negative (Negative); Ketones,Urine Negative (Negative); Leukocyte Esterase,Urine Trace (Negative); Mucus,Urine Rare /hpf; Nitrite,Urine Negative (Negative); PH, Urine 5.5 (5.0-8.0); Particle Count 726; Protein,Urine Negative (Negative); Specific Gravity,Urine 1.008 (1.001-1.035); Squamous Epithelial Cell,Urine <1 /hpf (0-4); UA Billing (MACRO vs. MICRO) MICRO; Urobilinogen,Urine <2.0 mg/dL (<2.0); WBC,Urine 1 /hpf (0-5)
[2016-12-30 12:51] LABS: ALT 20 U/L (9-52); AST 35 U/L (14-36); Alkaline Phosphatase 78 U/L (38-126); Anion Gap 11 mmol/L; Blood Urea Nitrogen 20 mg/dL (7-17); Calcium 8.7 mg/dL (8.4-10.2); Carbon Dioxide 22 mmol/L (22-30); Chloride 108 mmol/L (98-107); Creatine Kinase <20 U/L (30-135); Glucose 123 mg/dL (74-99); Magnesium 1.8 mg/dL (1.6-2.3); Non-African American GFR(MDRD) >60 (>60 ml/min/1.73 sqM); Phosphorous 3.7 mg/dL (2.5-4.5); Sodium 141 mmol/L (137-145); Total Bilirubin 0.7 mg/dL (0.2-1.3); Total Protein 6.6 g/dL (6.3-8.2)
[2016-12-30 12:59] LABS: Potassium 4.7 mmol/L (3.5-5.1)
[2016-12-30 13:03] LABS: Creatine Kinase MB 0.6 ng/mL (0.0-2.4); INR 1.1 (<1.1); Partial Thromboplastin Time 24.4 sec (22.0-30.0); Prothrombin Time 11.3 sec (9.0-12.0); Troponin I <0.012 ng/mL (0.000-0.034)
--- NOTE | 2016-12-30 13:18 | CT ---
EXAMINATION TYPE: CT facial bones wo con DATE OF EXAM: 12/30/2016 COMPARISON: NONE HISTORY: Patient poor historian. Patient shows signs of confusion. Patient has contusion to right f [place]. CT DLP: 1337.2 mGycm Automated exposure control for dose reduction was used. TECHNIQUE: CT scan of the sinuses is performed without contrast, axial images are obtained, coronal r eformatted images are also reviewed. FINDINGS: The paranasal sinuses including the frontal, ethmoid, sphenoid, and maxillary sinuses bila terally are well-aerated without abnormal opacification. The ostiomeatal complex is patent bilateral ly on the coronal images. Visualized portion of mastoid air cells show no abnormal opacification. The globes are intact bilate rally. Coni bullosa noted bilaterally. Nasal septal deviation seen. Encephalomalacia and remote ischemia involving intracranial visualized structures. Increased signal w ithin the right mastoid air cells suggestive of chronic mastoiditis. IMPRESSION: 1. No diagnostic evidence of acute fracture. 2. Correlate for chronic mastoiditis on the right
--- NOTE | 2016-12-30 13:22 | XR ---
EXAMINATION TYPE: XR chest 1V DATE OF EXAM: 12/30/2016 COMPARISON: Prior chest x-ray 07/21/2016 HISTORY: Pain TECHNIQUE: Single frontal view of the chest is obtained. FINDINGS: There is no focal air space opacity, pleural effusion, or pneumothorax seen. The cardiac silhouette size is within normal limits. Patient is rotated. There are overlying cardiac leads. The osseous structures are intact. IMPRESSION: No acute process.
--- NOTE | 2016-12-30 13:24 | XR ---
Abdomen HISTORY: Pain, blood in stool Single frontal view of the abdomen Patient is status post left hip arthroplasty. Marked osteoarthritic change present in the right hip. Mild spinal curvature is noted. Bone mineralization is reduced. A lung bases are not included on the exam. There is no evident pneumoperitoneum or bowel obstruction. IMPRESSION: No acute abdominal abnormality.
--- NOTE | 2016-12-30 13:26 | CT ---
EXAMINATION TYPE: CT brain dwight miller DATE OF EXAM: 12/30/2016 COMPARISON: NONE HISTORY: Patient poor historian. Patient shows signs of confusion. Patient has contusion to right f [place]. CT DLP: 1036.9 mGycm Automated exposure control for dose reduction was used. TECHNIQUE: CT scan of the head and cervical spine are performed without contrast. FINDINGS: Abnormal density mastoid air cells compatible with chronic mastoiditis. No definite fract ure line. There is extensive abnormal attenuation in the white matter and evidence of previous enceph alomalacia involving the frontal lobes bilaterally and left temporal lobe. Correlate for remote ische henry. Moderate generalized degenerative change. No mass effect. No acute hemorrhage. Intracranial athe rosclerotic changes seen. Assessment spinal canal limited by noncontrast technique and artifact. The anterior arch of C1 is int act. Post arthritic changes involving the atlantoaxial joint are noted. Multilevel degenerative disc disease and facet arthropathy noted IMPRESSION: 1. There is no acute fracture or dislocation evident in the cervical spine. Multilevel degenerative d isc disease with facet arthropathy. 2. No acute intracranial hemorrhage, mass effect, or midline shift is seen. Extensive remote ischemic change noted.
--- NOTE | 2016-12-30 13:26 | XR ---
Pelvis HISTORY: Pain, blood in stool Single frontal view of the pelvis correlated to prior exam 07/21/2016 No interval change is evident. Postop changes are again seen, postop changes in the left hip, marked osteophytic change in the right hip again noted. Bone mineralization is reduced. Retained fecal debri s present within the rectum. IMPRESSION: Correlate for fecal impaction.
[2016-12-30] MEDS ORDERED: hydrALAZINE HCL 20 MG/ML 1 ML VIAL IVP STA (13:52)
[2016-12-30] MEDS ORDERED: PANTOPRAZOLE 40 MG/10 ML VIAL IVP STA (14:32)
[2016-12-30] MEDS: LORazepam 2 MG/ML SYRINGE IV STA ×2 (15:41→15:42)
[2016-12-30] MEDS ORDERED: hydrALAZINE HCL 20 MG/ML 1 ML VIAL IVP PRN (17:33)
[2016-12-30] MEDS: METOPROLOL TARTRATE 50 MG TAB PO SCH ×2 (21:41→21:46)
[2016-12-30] MEDS: ATORVASTATIN 20 MG TAB PO SCH ×2 (21:41→21:46)
[2016-12-30] MEDS: levETIRAcetam 500 MG TAB PO SCH ×2 (21:41→21:46)
[2016-12-30] MEDS: PANTOPRAZOLE 40 MG/10 ML VIAL IVP SCH (21:41)
[2016-12-30] MEDS: LOSARTAN 50 MG TAB PO SCH ×2 (21:41→21:46)
[2016-12-31] MEDS: ENALAPRILAT 1.25 MG/ML 1 ML VIAL IVP PRN ×2 (00:15→16:31)
[2016-12-31 03:24] LABS: Hemoglobin A1C 5.2 % (4.2-6.1)
[2016-12-31] MEDS: LEVOTHYROXINE 25 MCG TAB PO SCH (05:48)
--- NOTE | 2016-12-31 07:07 | HP ---
DATE OF ADMISSION: CHIEF COMPLAINT: An 86-year-old white female admitted with altered mental status. HISTORY OF PRESENT ILLNESS: An 86-year-old white female here for hypertension acceleration, argumentative, combative and possibly some dark stool. She was recently started on iron pill recently thought, but she has had some confusion today. She apparently hit her head after the confusion started with a small hematoma on the right scalp. Patient was sent to ER for evaluation and was found to have possible stool obstruction. She is a poor historian. MEDICATIONS, SHE TAKES: 1. Zoloft. 2. Aspirin. 3. Lopressor. 4. K-Dur. 5. Levetiracetam. 6. Synthroid. 7. Naprosyn. 8. Lipitor. 9. Ativan. ALLERGIES: CODEINE. REVIEW OF SYSTEMS: Fourteen-point review of systems negative except for as mentioned in HPI. PAST MEDICAL HISTORY: Cancer, CVA, TIA, dementia, dyslipidemia, hypertension, hypothyroidism, macular degeneration, no hearing in the left ear. SURGICAL HISTORY: Breast surgery, hysterectomy, joint replacement, left hip replacement, right mastectomy. FAMILY HISTORY: Mother unknown. PHYSICAL EXAM: VITAL SIGNS: Stable, afebrile. CARDIOVASCULAR: S1, S2. LUNGS: Transmitted upper airway sounds. GI: Distended due to obesity. Nontender. No mass or organomegaly. HEMATOLOGIC: Negative Homans. PSYCH: Fair mood and affect. VASCULAR: Normal dorsalis pedis, posterior tibial and radial pulses. OPHTHALMOLOGIC: Pupils equal, round, react to light and accommodation. NEUROLOGIC: Alert and oriented x2. SKIN: Warm, dry, and intact and she has no lymphadenopathy. External ear canals within normal limits. ENT shows right external ear canal shows bleeding from the ( ) eardrum with some raw excoriation of the external ear canal. Temp 97 to 98, pulse 67 to 69, respirations 16 to 18, blood pressure 180 to 220 systolic over 100 to 110, O2 is 96% to 97% on room air. White count is 15.1. Hemoglobin is 12.7. BUN of 20, creatinine 0.56. Platelets ( ). Troponin is negative. CAT scan and x-rays all reviewed. CT scan was reviewed. ASSESSMENT: 1. Dehydration. 2. Melena. 3. Gastrointestinal bleed. 4. Dementia. 5. Hypertension acceleration. 6. Possible transient ischemic attack type symptomatology. 7. Possible constipation. Please see further orders. Neurology consult is pending as well as GI consult pending.
[2016-12-31] MEDS: FUROSEMIDE 20 MG TAB PO SCH (08:13)
[2016-12-31] MEDS: levETIRAcetam 500 MG TAB PO SCH ×2 (08:13→22:25)
[2016-12-31] MEDS: METOPROLOL TARTRATE 50 MG TAB PO SCH ×2 (08:14→22:26)
[2016-12-31] MEDS: LOSARTAN 50 MG TAB PO SCH ×2 (08:14→22:26)
[2016-12-31] MEDS: LORazepam 0.5 MG TAB PO SCH (08:14)
[2016-12-31] MEDS: SERTRALINE 50 MG TAB PO SCH (08:15)
[2016-12-31] MEDS: PANTOPRAZOLE 40 MG/10 ML VIAL IVP SCH ×2 (08:15→23:35)
[2016-12-31] MEDS: POTASSIUM CHLORIDE ER 20 MEQ TAB.ER PO SCH (08:15)
[2016-12-31 08:36] LABS: Anisocytosis Slight; Basophils # (A) 0.1 k/uL (0-0.2); Basophils % (A) 0 %; Eosinophils # (A) 0.4 k/uL (0-0.7); Eosinophils % (A) 3 %; HCT 40.9 % (34.0-46.0); HDW 3.08; Hypochromasia Marked; Luc # (Auto) 0.36; Luc % (Auto) 2; Lymphocytes # (A) 1.3 k/uL (1.0-4.8); Lymphocytes % (A) 9 %; MCH 20.6 pg (25.0-35.0); MCHC 29.4 g/dL (31.0-37.0); MCV 70.2 fL (80.0-100.0); Mean Platelet Volume 6.8; Microcytosis Marked; Monocytes # (A) 0.6 k/uL (0-1.0); Monocytes % (A) 4 %; Neutrophils % (A) 81 %; RBC 5.83 m/uL (3.80-5.40); RDW 19.7 % (11.5-15.5); WBC 14.7 k/uL (3.8-10.6); WBC (Perox) 15.52
--- NOTE | 2016-12-31 08:56 | P.CNNES ---
History of Present Illness Consult date: 12/31/16 Reason for Consult: Patient admitted with confusion and agitation, possible TIA. History of Present Illness: This patient is a 86-year-old right-handed white female who was brought into the emergency room yesterday for evaluation of increased confusion and hypertensive urgency. Patient is a very poor historian but apparently was brought in for further evaluation of uncontrolled hypertension and increased confusion and agitation. Patient has a history of previous underlying cognitive decline. She was brought into the emergency room for further evaluation. She was seen in the ER by Dr. Story. She was sent for a computed tomography scan of the head and cervical spine. The results indicated no acute fracture or dislocation. CT of the brain revealed no acute intracranial abnormalities. There was extensive white matter ischemic changes noted. The patient is now resting in bed. She still remains quite confused. She is being evaluated for possibility of dark stools and GI bleeding. She did sustain a small hematoma to the right scalp area but as noted computed tomography scan of the brain failed to reveal any acute changes. Patient does have previous history of underlying dementia. As noted she is apparently living in a assisted living facility. Exact details were not obtainable today as a patient is a very poor historian. We have recommended a routine EEG for further evaluation of this patient's cognitive function. As noted CAT scan does reveal evidence of severe white matter ischemic changes suggesting vascular dementia. She may require placement depending on her overall outcome during this admission. Patient does follow simple commands. She complains of hearing loss in her right ear. She also has multiple complaints of arthritic pain in the elbow and knees. We will await further evaluation from internal medicine. Her overall prognosis at this time remains very guarded. Neurology is now consulted for further evaluation and recommendations. Review of Systems Constitutional: Denies chills, Denies fever Eyes: denies blurred vision, denies pain Ears, nose, mouth and throat: Denies headache, Denies sore throat Cardiovascular: Denies chest pain, Denies shortness of breath Respiratory: Denies cough Gastrointestinal: Denies abdominal pain, Denies diarrhea, Denies nausea, Denies vomiting Genitourinary: Denies dysuria, Denies hematuria Musculoskeletal: Denies myalgias Integumentary: Denies pruritus, Denies rash Neurological: Reports change in mentation, Reports confusion, Reports memory loss, Denies numbness, Denies weakness Psychiatric: Reports disorientation, Reports irritability, Reports memory loss, Denies anxiety, Denies depression Endocrine: Denies fatigue, Denies weight change 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, past rt breast cancer-no bp rt arm, hx falls.past fx rt humerus( non sx intervention) and in 2004 or 2005 fall w/ closed head injury-on keppra for seizure prevention, recent uti, constipation. djd. History of Any Multi-Drug Resistant Organisms: None Reported Past Surgical History: Breast Surgery, Hysterectomy, Joint Replacement Additional Past Surgical History / Comment(s): left hip replacement, right masectomy Past Anesthesia/Blood Transfusion Reactions: No Reported Reaction Smoking Status: Never smoker - Past Family History Father Family Medical History: Cancer Additional Family Medical History / Comment(s): colon cancer Mother History Unknown: Yes Additional Family Medical History / Comment(s): before age 60 pt's daughter not sure of cause Medications and Allergies Home Medications Medication Instructions Recorded Confirmed Type Sertraline HCl [Zoloft] 50 mg PO DAILY 11/16/13 12/30/16 History Aspirin 81 mg PO Q48H 02/03/15 12/30/16 History Metoprolol Tartrate [Lopressor] 50 mg PO BID 02/03/15 12/30/16 History Potassium Chloride ER [K-Dur 20] 20 meq PO DAILY 07/28/15 12/30/16 History levETIRAcetam [Levetiracetam] 500 mg PO BID 07/28/15 12/30/16 History Levothyroxine Sodium [Synthroid] 25 mcg PO DAILY 07/21/16 12/30/16 History Naproxen [Naprosyn] 375 mg PO BID 07/21/16 12/30/16 History Atorvastatin [Lipitor] 20 mg PO HS 12/30/16 12/30/16 History LORazepam [Ativan] 0.5 mg PO DAILY 12/30/16 12/30/16 History Allergies Allergy/AdvReac Type Severity Reaction Status Date / Time codeine Allergy Unknown Verified 12/30/16 13:57 Physical Examination - Vital Signs Vital Signs: Vital Signs Temp Pulse Pulse Resp BP BP Pulse Ox 12/31/16 07:00 97.5 F L 68 18 160/73 92 L 12/30/16 23:00 97.7 F 86 18 179/100 95 12/30/16 18:25 97.4 F L 68 20 169/94 94 L 12/30/16 18:03 98.5 F 66 16 196/90 94 L 12/30/16 16:53 98.5 F 70 16 192/91 96 12/30/16 16:04 97 F L 76 20 181/93 94 L 12/30/16 15:51 97.2 F L 73 16 197/90 97 12/30/16 15:31 97.7 F 72 16 195/91 98 12/30/16 15:30 98.2 F 77 16 197/90 12/30/16 15:27 73 16 197/90 97 12/30/16 14:31 97.7 F 62 16 192/93 97 12/30/16 14:25 98.5 F 67 16 192/93 98 12/30/16 14:00 98.5 F 63 16 214/100 95 12/30/16 13:49 98.6 F 67 16 205/100 96 12/30/16 11:54 97.4 F L 69 18 240/109 97 Intake and Output 12/30/16 12/31/16 12/31/16 22:59 06:59 14:59 Other: Voiding Method Diaper Diaper Incontinent Incontinent # Voids 2 1 - Constitutional General appearance: average body habitus, cooperative, mild distress - EENT EENT: PERRL, mucous membranes moist - Respiratory Respiratory: lungs clear, normal breath sounds - Cardiovascular Cardiovascular: regular rate, normal S1, normal S2 Extremities: no peripheral edema bilaterally - Gastrointestinal Gastrointestinal: normoactive bowel sounds - Integumentary Integumentary: normal - Neurologic Cranial nerve examination: PERRL, EOMI, VFF, V1/V2/V3 grossly intact, face symmetric, tongue midline, intact gag reflex, intact corneal reflex, normal palatal elevation Speech examination: intact Sensorimotor examination: intact Detailed motor examination: grossly full strength in all extremities Detailed sensory examination: intact Reflex and gait examination: intact Reflexes: 1+: ankle, bicep, knee, tricep - Musculoskeletal Musculoskeletal: no pain - Psychiatric Psychiatric: agitated Results - Laboratory Findings CBC and BMP: 12/31/16 07:55 12/30/16 12:12 Abnormal Lab Findings: Abnormal Labs 12/30/16 12/30/16 12/30/16 12:12 12:12 12:12 WBC 15.1 H RBC 5.97 H MCV 71.1 L MCH 21.3 L MCHC 30.0 L RDW 19.7 H Plt Count 143 L Neutrophils # 12.4 H Chloride 108 H BUN 20 H Glucose 123 H Total Creatine Kinase <20 L Ur Leukocyte Esterase Urine Mucus 12/30/16 12:27 WBC RBC MCV MCH MCHC RDW Plt Count Neutrophils # Chloride BUN Glucose Total Creatine Kinase Ur Leukocyte Esterase Trace H Urine Mucus Rare H Assessment and Plan (1) GIB (gastrointestinal bleeding) Status: Acute Code(s): K92.2 - GASTROINTESTINAL HEMORRHAGE, UNSPECIFIED (2) Alzheimer's dementia Status: Acute Code(s): G30.9 - ALZHEIMER'S DISEASE, UNSPECIFIED (3) Delirium due to general medical condition Status: Acute Code(s): F05 - DELIRIUM DUE TO KNOWN PHYSIOLOGICAL CONDITION Plan: This patient is a 86-year-old female with history of underlying dementia. She was admitted to hospital with increased confusion and agitation. Her symptoms are consistent with acute delirium. We have recommended a psychiatry consultation for further evaluation. Computed tomography scan of the brain and cervical spine were reviewed the results are as noted above. CAT scan of the brain reveals significant vascular changes consistent with a vascular dementia. We have recommended PT OT evaluation for the patient. She may require placement as well as she is showing worsening and progression of underlying dementia. Her overall prognosis at this time remains very guarded. We will continue close neurological follow-up of this patient during this admission. Time with Patient: Greater than 30
[2016-12-31 09:03] LABS: ALT 23 U/L (9-52); AST 21 U/L (14-36); Alkaline Phosphatase 82 U/L (38-126); Anion Gap 10 mmol/L; Blood Urea Nitrogen 12 mg/dL (7-17); Calcium 8.6 mg/dL (8.4-10.2); Carbon Dioxide 22 mmol/L (22-30); Chloride 109 mmol/L (98-107); Glucose 90 mg/dL (74-99); Non-African American GFR(MDRD) >60 (>60 ml/min/1.73 sqM); Potassium 3.6 mmol/L (3.5-5.1); Sodium 141 mmol/L (137-145); Total Bilirubin 0.7 mg/dL (0.2-1.3); Total Protein 5.8 g/dL (6.3-8.2)
--- NOTE | 2016-12-31 10:37 | P.CONS ---
History of Present Illness - Reason for Consult Consult date: 12/31/16 GI bleed Requesting physician: Jorgito Chowdhury - History of Present Illness 86-year-old female with a history of vascular dementia possible myeloproliferative disorder, CVA, hypertension, hyperlipidemia, macular degeneration, depression, ECF resident presents with reports of black-colored stool and increased confusion recent fall. Hemoglobin 12.0-12.7. White count 14.7-15.1. MCV 70. Platelet 128. INR 1.1. BUN 20 creatinine 0.5. Patient reports intermittent nausea no abdominal pain or vomiting. ECF medications include Naprosyn twice daily as well as baby aspirin. History obtained from chart and nursing staff patient is poor historian and unable to provide details. Unsure if patient has a history of EGD or colonoscopy. Pelvic x-rays reported fecal impaction. He reports no evidence of overt bleeding such as hematemesis hematochezia or melena. Review of Systems Referred is HPI patient unable to provide Constitutional: Denies fever, chills, sweats, weight gain, or loss. HEENT: Negative for migraines, blurred vision or loss, earaches, drainage, tinnitus, oral mucosal lesions, dysphagia, or odynophagia. CARDIAC: Negative for chest pain, arrhythmias, or palpitation. RESPIRATORY: Negative for shortness of breath, hemoptysis, cough, or sputum production. GI: See HPI for pertinent findings. : Negative for hematuria, urgency, frequency, polyuria, or dysuria. GYNc: Denies possibility of . Negative vaginal discharge. MUSCULOSKELETAL: Negative for muscle aches, swelling, arthritis, and arthralgias. NEUROLOGIC: History stroke or TIA. Dementia ENDOCRINE: Negative for thyroid problems. Hematologic: Possible myeloproliferative disorder SKIN: Negative for rash or itching. PSYCHIATRIC: History of depression. ROS unobtainable: due to mental status (See HPI) 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, past rt breast cancer-no bp rt arm, hx falls.past fx rt humerus( non sx intervention) and in 2005 or 2006 fall w/ closed head injury-on kera for seizure prevention, recent uti, constipation. djd. History of Any Multi-Drug Resistant Organisms: None Reported Past Surgical History: Breast Surgery, Hysterectomy, Joint Replacement Additional Past Surgical History / Comment(s): left hip replacement, right masectomy Past Anesthesia/Blood Transfusion Reactions: No Reported Reaction Smoking Status: Never smoker - Past Family History Father Family Medical History: Cancer Additional Family Medical History / Comment(s): colon cancer Mother History Unknown: Yes Additional Family Medical History / Comment(s): before age 60 pt's daughter not sure of cause Medications and Allergies Home Medications Medication Instructions Recorded Confirmed Type Sertraline HCl [Zoloft] 50 mg PO DAILY 11/16/13 12/30/16 History Aspirin 81 mg PO Q48H 02/03/15 12/30/16 History Metoprolol Tartrate [Lopressor] 50 mg PO BID 02/03/15 12/30/16 History Potassium Chloride ER [K-Dur 20] 20 meq PO DAILY 07/28/15 12/30/16 History levETIRAcetam [Levetiracetam] 500 mg PO BID 07/28/15 12/30/16 History Levothyroxine Sodium [Synthroid] 25 mcg PO DAILY 07/21/16 12/30/16 History Naproxen [Naprosyn] 375 mg PO BID 07/21/16 12/30/16 History Atorvastatin [Lipitor] 20 mg PO HS 12/30/16 12/30/16 History LORazepam [Ativan] 0.5 mg PO DAILY 12/30/16 12/30/16 History Allergies Allergy/AdvReac Type Severity Reaction Status Date / Time codeine Allergy Unknown Verified 12/30/16 13:57 Physical Exam Vitals: Vital Signs Temp Pulse Pulse Resp BP BP Pulse Ox 12/31/16 07:00 97.5 F L 68 18 160/73 92 L 12/30/16 23:00 97.7 F 86 18 179/100 95 12/30/16 18:25 97.4 F L 68 20 169/94 94 L 12/30/16 18:03 98.5 F 66 16 196/90 94 L 12/30/16 16:53 98.5 F 70 16 192/91 96 12/30/16 16:04 97 F L 76 20 181/93 94 L 12/30/16 15:51 97.2 F L 73 16 197/90 97 12/30/16 15:31 97.7 F 72 16 195/91 98 12/30/16 15:30 98.2 F 77 16 197/90 12/30/16 15:27 73 16 197/90 97 12/30/16 14:31 97.7 F 62 16 192/93 97 12/30/16 14:25 98.5 F 67 16 192/93 98 12/30/16 14:00 98.5 F 63 16 214/100 95 12/30/16 13:49 98.6 F 67 16 205/100 96 12/30/16 11:54 97.4 F L 69 18 240/109 97 Intake and Output 12/30/16 12/31/16 12/31/16 22:59 06:59 14:59 Other: Voiding Method Diaper Diaper Incontinent Incontinent # Voids 2 1 General appearance: The patient is alert, no acute distress. HET: Head is normocephalic and atraumatic. Pupils are equal and reactive. Oropharynx is clear without lesions. Right supraorbital with ecchymosis mild swelling. Neck: Supple without lymphadenopathy. Trachea midline. Heart: S1 S2. Regular rate and rhythm. Lungs: No crackles or wheezes are heard. Abdomen: Soft, nontender, nondistended with bowel sounds. No peritoneal signs. No palpable organomegaly or masses. Extremities: Normal skin color and turgor. No cyanosis, rash, ulceration, clubbing, or edema. Radial and pedal pulses are 2/4 bilaterally. Rectal: Slight black tinged brown stool on exam. Rectal vault with soft stool. Tight sphincter. No palpable masses. Neurological: No focal deficits. Strength and sensation are grossly intact. Results CBC & Chem 7: 12/31/16 07:55 12/31/16 07:55 Labs: Abnormal Lab Results - Last 24 Hours (Table) 12/30/16 12/30/16 12/30/16 Range/Units 12:12 12:12 12:12 WBC 15.1 H (3.8-10.6) k/uL RBC 5.97 H (3.80-5.40) m/uL MCV 71.1 L (80.0-100.0) fL MCH 21.3 L (25.0-35.0) pg MCHC 30.0 L (31.0-37.0) g/dL RDW 19.7 H (11.5-15.5) % Plt Count 143 L (150-450) k/uL Neutrophils # 12.4 H (1.3-7.7) k/uL Chloride 108 H (98-107) mmol/L BUN 20 H (7-17) mg/dL Creatinine (0.52-1.04) mg/dL Glucose 123 H (74-99) mg/dL Total Creatine Kinase <20 L (30-135) U/L Total Protein (6.3-8.2) g/dL Albumin (3.5-5.0) g/dL Ur Leukocyte Esterase (Negative) Urine Mucus (None) /hpf 12/30/16 12/31/16 12/31/16 Range/Units 12:27 07:55 07:55 WBC 14.7 H (3.8-10.6) k/uL RBC 5.83 H (3.80-5.40) m/uL MCV 70.2 L (80.0-100.0) fL MCH 20.6 L (25.0-35.0) pg MCHC 29.4 L (31.0-37.0) g/dL RDW 19.7 H (11.5-15.5) % Plt Count 128 L (150-450) k/uL Neutrophils # 12.0 H (1.3-7.7) k/uL Chloride 109 H (98-107) mmol/L BUN (7-17) mg/dL Creatinine 0.51 L (0.52-1.04) mg/dL Glucose (74-99) mg/dL Total Creatine Kinase (30-135) U/L Total Protein 5.8 L (6.3-8.2) g/dL Albumin 3.2 L (3.5-5.0) g/dL Ur Leukocyte Esterase Trace H (Negative) Urine Mucus Rare H (None) /hpf Microbiology - Last 24 Hours (Table) 12/30/16 12:27 Urine Culture - Preliminary Urine,Voided Assessment and Plan (1) Melena Narrative/Plan: 86-year-old female with a history of dementia presents with reported GI bleed black colored bowel movements by family and ECF staff with increased confusion and recent fall. NSAID and aspirin usage prior to admission. Possible peptic ulcer disease possible gastritis possible esophagitis. Status: Acute (2) Altered mental status Status: Acute (3) Dementia Status: Acute (4) Leukocytosis Narrative/Plan: Evaluated by hematology in the past possible myeloproliferative disorder Status: Chronic (5) Thrombocytopenia Status: Chronic Plan: 1. Protonix 40 mg IV twice daily. 2. We'll proceed with EGD evaluation. 3. Monitor CBC daily. The manager cleaning has discussed the risks, benefits and alternative therapies for the above-mentioned procedure and for both sedation/analgesia as well as necessary blood product administration, if indicated, as they pertain to this patient. The patient's advocate has indicated understanding and acceptance of the risks and procedures discussed. Thank you for this kind referral and the opportunity to participate in the care of your patient. This consultation was discussed with Dr. Hinson. The impression and plan of care have been directed as dictated.
--- NOTE | 2016-12-31 11:00 | CDI ---
In responding to this query, please exercise your independent professional judgment. The [facility] Coding Staff and Clinical Documentation Specialists appreciate your assistance in clarifying documentation, maintaining compliance with coding guidelines, accurately documenting patients condition and capturing severity of illness. The fact that a question is asked does not imply that any particular answer is desired or expected. Communication forms are a method of clarifying documentation and are not made part of the Legal Health Record. Thank you in advance for your clarification. Last Revision, May 2015 Garry Chatterjee [address] [place] [address] Documentation Clarification Form Date: 12/31/2016 10:26:00 AM From: Maria Luisa Mendez Admit Date: 12/30/2016 2:30:00 PM Patient Name: Denisse Daley Visit Number: [id number] Discharge Date: Dr. Jorgito Chowdhury/Ceci [facility] Hypertension, acceleration is in the H&P Patient history/risk factors: Hypertension, CVA/TIA, Dementia, Clinical Indicators: Transfer with altered mental status, hypertension acceleration, argumentative, combative, confusion and dark stools. Lab findings: WBC 15.1, HGB 12.7, CHT 42.4 Radiology findings: CT Brain: negative Vital Signs: 140/109 69 148, 205/100 67 16, 214/100 63 16, 192/93 67 16 Treatment: IV Fluids Lopressor PO Apresoline IVP Vasotec IVP Monitor Vitals signs Neurological assessment per protocol In your professional opinion, can you please further clarify? Hypertensive Crisis: Hypertensive crisis is defined as two consecutive blood pressure readings with a systolic BP of >180MMhg or diastolic BP>110. Hypertensive Urgency: Hypertensive crisis without organ damage. Symptoms may or may not be present, but can include: severe headache, shortness of breath, nosebleed, and severe anxiety: Treatment: adjustment of oral blood pressure medications. Hypertensive Emergency: Hypertensive crisis with organ damage. These patients require immediate treatment of blood pressure, most often with IV medication Hypertensive crisis with Hypertensive Encephalopathy: Symptoms: significantly elevated blood pressure systolic>200MMhg; Diastolic>120MMhg), Headaches, Obtundation, Confusion or Stupor. Treatment: IV medication adjustment. Other Unable to determine Please document in your progress notes and discharge summary in order to capture severity of illness and risk of mortality. Include clinical findings that support your diagnosis. FYI: Press F11 to launch patient chart. Place X here if this finding has no clinical significance, is not applicable or if you are not able to provide any additional documentation. ABDULAZIZ
[2016-12-31] MEDS ORDERED: IV FLUID CONTINUATION 1,000 ML IV ONE (14:45)
[2016-12-31] MEDS ORDERED: PROPOFOL 10 MG/ML 20 ML VIAL IV ONE (14:55)
--- NOTE | 2016-12-31 15:13 | P.PCN ---
Date of Procedure: 12/31/16 Preoperative Diagnosis: Postoperative Diagnosis: Procedure(s) Performed: Procedure: Esophagogastroduodenoscopy and biopsy. Preoperative diagnosis: Black stools and suspected upper GI bleeding. Postoperative diagnosis: 1. Small hiatal hernia with no obvious esophagitis or complicated reflux disease or any mucosal tears or varices. 2. Gastritis with antral ulcers with clean base and small prepyloric erosion with no evidence of active bleeding. 3. Biopsies obtained from the antrum to rule out H. pylori infection. Preparation and sedation: Was provided by anesthesia. Brief clinical history: The patient is an 86-year-old female resident of [facility] with a history of vascular dementia, possible myeloproliferative disorder, CVA, hypertension, hyperlipidemia, macular degeneration and depression admitted with reports of black-colored stool and increased confusion and recent fall. Hemoglobin 12.0-12.7. White count 14.7-15.1. MCV 70. Platelet 128. INR 1.1. BUN 20 creatinine 0.5. Patient reports intermittent nausea but no abdominal pain or vomiting. ECF medications include Naprosyn twice daily as well as baby aspirin. The details are summarized in the history and physical and dictated consultations and progress notes. This evaluation is to assess for a possible source of bleeding in the upper GI tract. Procedure: With the patient in the supine position and after informed consent and adequate sedation, I passed the Olympus-GIF 160 video upper endoscope through the cricopharyngeus down the esophagus. The esophagus appeared healthy with no obvious esophagitis or complicated reflux disease or any mucosal tears, varices or other potential sources of bleeding. There was a small sliding hiatal hernia then the endoscope was passed into the stomach which was insufflated with air and inspected in detail including the retroflex view in the cardia. There was mottling and erythema especially pronounced in the antrum and prepyloric area with an antral ulcer measuring around 1-1/2 cm with clean base and a prepyloric isolated erosion but no evidence of active bleeding. Pyloric channel did not show any ulcers. Duodenal bulb, post bulbar area and descending duodenum appeared within normal limits. All secretions encountered in the esophagus stomach and duodenum were either clear or bilious in color. I obtained biopsies from the antrum then the endoscope was withdrawn. The patient tolerated the procedure well. Plan: The findings will be shared with the patient and her family. Will continue current ulcer therapy which has been already started empirically. Will await biopsy results and make further plans based on her course. Implants: Indications for Procedure: Operative Findings: Description of Procedure:
[2016-12-31 22:34] LABS: Anisocytosis Slight; Basophils # (A) 0.1 k/uL (0-0.2); Basophils % (A) 0 %; CH 20.9; CHCM 29.3; Eosinophils # (A) 0.4 k/uL (0-0.7); Eosinophils % (A) 3 %; HCT 41.3 % (34.0-46.0); HDW 2.91; Hypochromasia Marked; Luc # (Auto) 0.38; Luc % (Auto) 2; Lymphocytes # (A) 1.5 k/uL (1.0-4.8); Lymphocytes % (A) 10 %; MCH 20.9 pg (25.0-35.0); MCHC 29.2 g/dL (31.0-37.0); MCV 71.7 fL (80.0-100.0); Mean Platelet Volume 7.1; Microcytosis Marked; Monocytes # (A) 0.6 k/uL (0-1.0); Monocytes % (A) 4 %; Neutrophils # (A) 12.7 k/uL (1.3-7.7); Neutrophils % (A) 81 %; RBC 5.76 m/uL (3.80-5.40); RDW 19.5 % (11.5-15.5); WBC 15.7 k/uL (3.8-10.6); WBC (Perox) 16.44
[2016-12-31] MEDS: ATORVASTATIN 20 MG TAB PO SCH (23:35)
[2017-01-01] MEDS: LEVOTHYROXINE 25 MCG TAB PO SCH (05:13)
[2017-01-01 07:51] VITALS: BP 187/91; PULSE 75; RESP 16; TEMP 96.5
[2017-01-01] MEDS: FUROSEMIDE 20 MG TAB PO SCH (08:03)
[2017-01-01] MEDS: SERTRALINE 50 MG TAB PO SCH (08:03)
[2017-01-01] MEDS: LOSARTAN 50 MG TAB PO SCH (08:03)
[2017-01-01] MEDS: PANTOPRAZOLE 40 MG/10 ML VIAL IVP SCH (08:03)
[2017-01-01] MEDS: POTASSIUM CHLORIDE ER 20 MEQ TAB.ER PO SCH (08:03)
[2017-01-01] MEDS: LORazepam 0.5 MG TAB PO SCH (08:03)
[2017-01-01] MEDS: levETIRAcetam 500 MG TAB PO SCH (08:03)
[2017-01-01] MEDS: METOPROLOL TARTRATE 50 MG TAB PO SCH (08:03)
--- NOTE | 2017-01-01 11:13 | P.DS ---
Providers Date of admission: 12/30/16 14:30 Expected date of discharge: 01/01/17 Attending physician: Jorgito Chowdhury Consults: 12/30/16 14:30 Consult Physician Urgent Consulting Provider: Gennaro Hinson Consult Reason/Comments: gib Do you want consulting provider notified?: Yes 12/30/16 17:18 Consult Physician Routine Consulting Provider: Shamir De La Rosa Consult Reason/Comments: confusion Do you want consulting provider notified?: Yes 12/31/16 10:00 Consult Physician Routine Consulting Provider: Lester Shell Consult Reason/Comments: acute delerium Do you want consulting provider notified?: Yes Primary care physician: Stated None Patient Condition at Discharge: Fair Plan - Discharge Summary New Discharge Prescriptions: No Action Sertraline HCl [Zoloft] 50 mg PO DAILY Furosemide [Lasix] 20 mg PO DAILY #30 tablet Losartan [Cozaar] 50 mg PO BID #60 tab Aspirin 81 mg PO Q48H Metoprolol Tartrate [Lopressor] 50 mg PO BID levETIRAcetam [Levetiracetam] 500 mg PO BID Potassium Chloride ER [K-Dur 20] 20 meq PO DAILY Naproxen [Naprosyn] 375 mg PO BID Levothyroxine Sodium [Synthroid] 25 mcg PO DAILY Atorvastatin [Lipitor] 20 mg PO HS LORazepam [Ativan] 0.5 mg PO DAILY Discharge Medication List Sertraline HCl [Zoloft] 50 mg PO DAILY 11/16/13 [History] Furosemide [Lasix] 20 mg PO DAILY #30 tablet 11/20/13 [Rx] Losartan [Cozaar] 50 mg PO BID #60 tab 11/20/13 [Rx] Aspirin 81 mg PO Q48H 02/03/15 [History] Metoprolol Tartrate [Lopressor] 50 mg PO BID 02/03/15 [History] Potassium Chloride ER [K-Dur 20] 20 meq PO DAILY 07/28/15 [History] levETIRAcetam [Levetiracetam] 500 mg PO BID 07/28/15 [History] Levothyroxine Sodium [Synthroid] 25 mcg PO DAILY 07/21/16 [History] Naproxen [Naprosyn] 375 mg PO BID 07/21/16 [History] Atorvastatin [Lipitor] 20 mg PO HS 12/30/16 [History] LORazepam [Ativan] 0.5 mg PO DAILY 12/30/16 [History] Follow up Appointment(s)/Referral(s): None,Stated [Primary Care Provider] - 1-2 days
--- NOTE | 2017-01-01 11:31 | P.PN ---
Subjective Principal diagnosis: GI bleed Status post EGD yesterday for evaluation of GI bleed. History of dementia. EGD findings gastritis with antral ulcers with clean base and small prepyloric erosion with no evidence of active bleeding. Biopsies pending. Nursing reports no recurrence of bleeding. Tolerating liquid diet. Hemoglobin 12.0 last night. Objective - Vital Signs Vital signs: Vital Signs Temp 96.5 F L 01/01/17 07:00 Pulse 75 01/01/17 07:00 Resp 16 01/01/17 07:00 BP 187/91 01/01/17 07:00 Pulse Ox 95 01/01/17 07:57 Intake & Output 12/31/16 01/01/17 01/01/17 18:59 06:59 18:59 Intake Total 50 Balance 50 Intake: IV 50 Other: Voiding Method Bedside Commode Bedside Commode Bedside Commode Diaper Diaper Diaper Incontinent Incontinent Incontinent # Voids 1 1 1 # Bowel Movements 0 4 1 - Exam General appearance: The patient is alert, no acute distress. Hard of hearing. HET: Head is normocephalic and atraumatic. Pupils are equal and reactive. Oropharynx is clear without lesions. Right supraorbital with ecchymosis mild swelling. Neck: Supple without lymphadenopathy. Trachea midline. Heart: S1 S2. Regular rate and rhythm. Lungs: No crackles or wheezes are heard. Abdomen: Soft, nontender, nondistended with bowel sounds. No peritoneal signs. No palpable organomegaly or masses. Extremities: Normal skin color and turgor. No cyanosis, rash, ulceration, clubbing, or edema. Radial and pedal pulses are 2/4 bilaterally. Neurological: No focal deficits. Strength and sensation are grossly intact. - Labs CBC & Chem 7: 12/31/16 21:58 12/31/16 07:55 Labs: Abnormal Lab Results - Last 24 Hours (Table) 12/31/16 Range/Units 21:58 WBC 15.7 H (3.8-10.6) k/uL RBC 5.76 H (3.80-5.40) m/uL MCV 71.7 L (80.0-100.0) fL MCH 20.9 L (25.0-35.0) pg MCHC 29.2 L (31.0-37.0) g/dL RDW 19.5 H (11.5-15.5) % Plt Count 123 L (150-450) k/uL Neutrophils # 12.7 H (1.3-7.7) k/uL Assessment and Plan (1) Melena Narrative/Plan: Acute upper GI bleed secondary to peptic ulcer disease nonbleeding antral prepyloric ulcerations status post EGD with biopsies pending. Status: Acute (2) Altered mental status Status: Acute (3) Dementia Status: Acute (4) Leukocytosis Status: Chronic (5) Thrombocytopenia Status: Chronic Plan: 1. Agreeable for discharge. Advance to low residue diet. No NSAIDs. May continue with baby aspirin. GI prophylaxis on omeprazole 20 mg daily or Pepcid 20 mg twice daily. Return to office 2-3 weeks. Assessment and plan of care discussed with Dr. Hinson.
--- NOTE | 2017-01-01 15:49 | P.DS ---
Providers Date of admission: 12/30/16 14:30 Expected date of discharge: 01/01/17 Attending physician: Jorgito Chowdhury Consults: 12/30/16 17:18 Consult Physician Routine Consulting Provider: Shamir De La Rosa Consult Reason/Comments: confusion Do you want consulting provider notified?: Yes 12/31/16 10:00 Consult Physician Routine Consulting Provider: Lester Shell Consult Reason/Comments: acute delerium Do you want consulting provider notified?: Yes Primary care physician: Stated None Hospital Course: 86-year-old female presented on the day of admission to the emergency room to be evaluated for elevated blood pressure argumentative combative with dark stools. Patient is on no blood thinner. Gave no history of a fall. Patient is a poor historian has dementia patient did have a CAT scan of the brain and cervical spine in the emergency room it showed no acute findings no acute intracranial abnormality. There was extensive white matter ischemic changes noted. Patient does have underlying cognitive impairment who lives in an assisted living facility neurology consultation was requested. Patient does have a history of vascular dementia possible myeloproliferative disorder, CVA, hypertension, hyperlipidemia, macular degeneration, depression, [facility] resident presents with reports of black-colored stool noted by care providers increased confusion recent fall. Implement on admission was 12 pelvic x-ray showed fecal impaction no evidence of bleed patient's advocate which is her daughter the fishing accessories maker plan of care was discussed with and she did elect have the patient undergo an EGD as part of the workup for the patient experiencing black stool suspected an upper GI bleed. Patient did undergo the EGD and December 31 that showed a small hiatal hernia was no obvious esophagitis or complicated reflux disease or any varices. Gastritis with antral ulcers and erosion which showed no evidence of active bleeding biopsies were obtained from the atrum to rule out H. pylori infection. Patient's diet was advanced. Patient was started on protonix was no further episodes of any black stool the patient's daughter who is her advocate was anxious to have the patient return to the [facility] facility with no further testing to be done hemoglobin was stable at 12. Patient was discharged to the assisted living facility Psychiatric eval was requested the daughter who is the patient's advocate indicated that she did not want the patient seen by a psychiatrist that she wanted her mother to go home back to the assisted living facility that she felt that her mother was back to her baseline as far as the mentation. Mother's daughter indicated many years ago she was seen by a psychiatrist Dr. Rees but never followed up the daughter indicates she does not think it's necessary for this patient to be seen by psychiatric service daughter is requesting that the patient be discharged Impression discharge diagnosis Hypertension Present on admission hypertension urgency systolic blood pressure 240/109 (1) Melena Narrative/Plan: Acute upper GI bleed secondary to peptic ulcer disease nonbleeding antral prepyloric ulcerations status post EGD with biopsies pending. Status: Acute (2) Altered mental status Status: Acute (3) vascular Dementia progressive Status: Acute (4) Leukocytosis Status: Chronic (5) Thrombocytopenia Status: Chronic GIB (gastrointestinal bleeding) Status: Acute Code(s): K92.2 - GASTROINTESTINAL HEMORRHAGE, UNSPECIFIED Alzheimer's dementia with cognitive impairment Status: Acute Code(s): G30.9 - ALZHEIMER'S DISEASE, UNSPECIFIED Delirium due to general medical condition Status: Acute Code(s): F05 - DELIRIUM DUE TO KNOWN PHYSIOLOGICAL CONDITION The above dictated assessment and findings were discussed with Dr. Trenton Sheffield and the plan of care have been dictated as directed. Ceci Russ nurse practitioner acting as a scribe for Dr. Chowdhury Patient Condition at Discharge: Fair Plan - Discharge Summary New Discharge Prescriptions: New Omeprazole [PriLOSEC] 40 mg PO DAILY #[address] Sims Sertraline HCl [Zoloft] 50 mg PO DAILY Furosemide [Lasix] 20 mg PO DAILY #30 tablet Losartan [Cozaar] 50 mg PO BID #60 tab Aspirin 81 mg PO Q48H Metoprolol Tartrate [Lopressor] 50 mg PO BID levETIRAcetam [Levetiracetam] 500 mg PO BID Potassium Chloride ER [K-Dur 20] 20 meq PO DAILY Levothyroxine Sodium [Synthroid] 25 mcg PO DAILY Atorvastatin [Lipitor] 20 mg PO HS LORazepam [Ativan] 0.5 mg PO DAILY Discontinued Naproxen [Naprosyn] 375 mg PO BID Discharge Medication List Sertraline HCl [Zoloft] 50 mg PO DAILY 11/16/13 [History] Furosemide [Lasix] 20 mg PO DAILY #30 tablet 11/20/13 [Rx] Losartan [Cozaar] 50 mg PO BID #60 tab 11/20/13 [Rx] Aspirin 81 mg PO Q48H 02/03/15 [History] Metoprolol Tartrate [Lopressor] 50 mg PO BID 02/03/15 [History] Potassium Chloride ER [K-Dur 20] 20 meq PO DAILY 07/28/15 [History] levETIRAcetam [Levetiracetam] 500 mg PO BID 07/28/15 [History] Levothyroxine Sodium [Synthroid] 25 mcg PO DAILY 07/21/16 [History] Atorvastatin [Lipitor] 20 mg PO HS 12/30/16 [History] LORazepam [Ativan] 0.5 mg PO DAILY 12/30/16 [History] Omeprazole [PriLOSEC] 40 mg PO DAILY #30 capsule. 01/01/17 [Rx] Follow up Appointment(s)/Referral(s): Gennaro Hinson MD [STAFF PHYSICIAN] - 3 Weeks None,Stated [Primary Care Provider] - 1-2 days Jorgito Chowdhury MD [STAFF PHYSICIAN] - 1 Week Activity/Diet/Wound Care/Special Instructions: no NSAIDS Discharge Disposition: HOME SELF-CARE
--- NOTE | 2017-01-01 18:37 | P.PN ---
Subjective This patient is a 86 year old female being evaluated for altered mental status and confusion. The patient was seen in neurology consultation yesterday and was noted to have evidence of mental status changes as well as hypertensive urgency. She has a previous history of underlying cognitive decline. Patient was admitted to the hospital yesterday and continues to have evidence of mild delirium. We did request a psychiatry consultation for the patient as she seems to have evidence of underlying psychiatric symptoms including mild delirium. Patient has not been seen by psychiatry as of today. Apparently the daughter did not wish a psychiatry consultation to be performed. She does want the patient to be discharged back to her [facility] home later today. The patient was evaluated for possibility of GI bleeding. She underwent a procedure which reveals only hiatal hernia. No evidence of any active bleeding site. She did undergo a computed tomography scan of the brain which revealed severe white matter ischemic changes consistent with possibility of vascular dementia. Patient underwent routine EEG today. EEG was reviewed and is moderately slow with no evidence of any epileptiform discharges. The patient is to be discharged back to [facility] home later today. As noted her daughter is power of senior attorney and does not wish any further psychiatric workup for the patient. Her overall prognosis at this time remains very guarded. We will continue close neurological follow-up for the patient during this admission. We will continue to follow the patient during this admission. Objective - Vital Signs Vital signs: Vital Signs Temp 96.5 F L 01/01/17 07:00 Pulse 75 01/01/17 07:00 Resp 16 01/01/17 07:00 BP 187/91 01/01/17 07:00 Pulse Ox 95 01/01/17 07:57 Intake & Output 12/31/16 01/01/17 01/01/17 18:59 06:59 18:59 Intake Total 50 Balance 50 Intake: IV 50 Other: Voiding Method Bedside Commode Bedside Commode Bedside Commode Diaper Diaper Diaper Incontinent Incontinent Incontinent # Voids 1 1 2 # Bowel Movements 0 4 2 - Exam Physical examination: PHYSICAL EXAMINATION: Patient is resting comfortably in bed. VITAL SIGNS: Blood pressure is [187/90]. Heart rate is [75]. Respiration is [16] . Temperature is [96.5]. HEENT: Head is atraumatic, neck is supple, there were no carotid bruits. CHEST: Lungs are clear to auscultation and percussion. CARDIAC: S1, S2 normal rate and rhythm. There is no murmur. ABDOMEN: Soft and nontender. Bowel sounds are present. EXTREMITIES: There is no pedal edema. Peripheral pulses are present. Neurological examination: Patient's neurological examination is unchanged from yesterday. She is alert and oriented x2. She has no focal motor deficit on examination. - Labs CBC & Chem 7: 12/31/16 21:58 12/31/16 07:55 Labs: Abnormal Lab Results - Last 24 Hours (Table) 12/31/16 Range/Units 21:58 WBC 15.7 H (3.8-10.6) k/uL RBC 5.76 H (3.80-5.40) m/uL MCV 71.7 L (80.0-100.0) fL MCH 20.9 L (25.0-35.0) pg MCHC 29.2 L (31.0-37.0) g/dL RDW 19.5 H (11.5-15.5) % Plt Count 123 L (150-450) k/uL Neutrophils # 12.7 H (1.3-7.7) k/uL Assessment and Plan (1) GIB (gastrointestinal bleeding) Status: Acute Code(s): K92.2 - GASTROINTESTINAL HEMORRHAGE, UNSPECIFIED (2) Alzheimer's dementia Status: Acute Code(s): G30.9 - ALZHEIMER'S DISEASE, UNSPECIFIED (3) Delirium due to general medical condition Status: Acute Code(s): F05 - DELIRIUM DUE TO KNOWN PHYSIOLOGICAL CONDITION Plan: This patient is a 86-year-old female with history of underlying dementia. She was admitted to hospital with increased confusion and agitation. Her symptoms are consistent with acute delirium. We have recommended a psychiatry consultation for further evaluation. Computed tomography scan of the brain and cervical spine were reviewed the results are as noted above. CAT scan of the brain reveals significant vascular changes consistent with a vascular dementia. We have recommended PT OT evaluation for the patient. She may require placement as well as she is showing worsening and progression of underlying dementia. Patient was seen by GI and has no evidence of active GI bleeding. As noted her daughter does not wish to have a psychiatry consultation for the patient at this time. Patient is to be discharged [facility] home later today. Her overall condition has shown no significant change. As noted her EEG does reveal evidence of severe slowing consistent with a diffuse encephalopathy and underlying dementia. Her overall prognosis at this time remains very guarded. Patient is to be discharged [facility] home later today. We will continue close neurological follow-up of this patient during this admission. Her overall prognosis at this time remains very guarded.
--- NOTE | 2017-01-02 09:29 | EEG ---
DATE OF SERVICE: 01/01/2017 INDICATIONS FOR EXAMINATION: This patient is an 86 -year-old female being evaluated for altered mental status and confusion. AGE: 86Y EEG FINDINGS: A routine 21 channel awake digital EEG recording was accomplished utilizing the 10-20 international system with bipolar and referential montages. The background activity in the most alert resting states consists of low to medium amplitude, poorly developed and poorly sustained 5-6 Hz activity over the posterior head regions. This posterior rhythm attenuates to eye opening. There is a small amount of low amplitude 18-20 Hz beta activity seen maximally over the anterior head regions. Muscle and movement artifacts was observed on a few occasions during the tracing. Hyperventilation was not performed. Photic stimulation at flash frequencies of 2-30 Hz produced a minimal occipital driving response. No epileptiform discharges were seen. IMPRESSION: This EEG is moderately abnormal in a diffuse fashion due to slowing of the EEG background. The EEG failed to reveal any focal, lateralized or epileptiform abnormalities. Clinical correlation is recommended.
== END 2017-01-01 16:54 | disposition home or self-care (01) ==
LOC: EC 11:45 → INTOOBSV 14:30 → 4MS4W 14:30
PROVIDERS: ADMIT Family Medicine; ATTEND Family Medicine
DX: K27.4 Chronic or unspecified peptic ulcer, site unspecified, with hemorrhage (principal); F01.51 Vascular dementia, unspecified severity, with behavioral disturbance; G30.9 Alzheimer's disease, unspecified; K92.1 Melena; D72.829 Elevated white blood cell count, unspecified; S00.03XA Contusion of scalp, initial encounter; D69.6 Thrombocytopenia, unspecified; F05 Delirium due to known physiological condition; F02.81 Dementia in other diseases classified elsewhere, unspecified severity, with behavioral disturbance; F02.80 Dementia in other diseases classified elsewhere, unspecified severity, without behavioral disturbance, psychotic disturbance, mood disturbance, and anxiety; I16.0 Hypertensive urgency; E86.0 Dehydration; I10 Essential (primary) hypertension; E03.9 Hypothyroidism, unspecified; H35.30 Unspecified macular degeneration; E78.5 Hyperlipidemia, unspecified; Z79.899 Other long term (current) drug therapy; Z79.82 Long term (current) use of aspirin; Z79.1 Long term (current) use of non-steroidal anti-inflammatories (NSAID); Z88.5 Allergy status to narcotic agent; Z86.73 Personal history of transient ischemic attack (TIA), and cerebral infarction without residual deficits; F32.9 Major depressive disorder, single episode, unspecified; W22.8XXA Striking against or struck by other objects, initial encounter; Y92.129 Unspecified place in nursing home as the place of occurrence of the external cause; Z80.0 Family history of malignant neoplasm of digestive organs; K29.50 Unspecified chronic gastritis without bleeding; M19.029 Primary osteoarthritis, unspecified elbow; M17.0 Bilateral primary osteoarthritis of knee; K44.9 Diaphragmatic hernia without obstruction or gangrene; R56.9 Unspecified convulsions; H91.93 Unspecified hearing loss, bilateral
CPT/HCPCS: 96374 ×2; 96375 ×4; 96376 ×3; 99285 ×2; 96361 ×7; 51798; 36415; 95816; 93005; 88305; 80053 ×2; 84443; 83036; 82550; 82553; 83735; 84100; 84484; 85025 ×2; 85610; 85730; 81001; 88342; 87086; 87077; 87186; 71010; 72170; 74000; 72125; 70486; 70450; 43239; G0378 ×3; J2060; J0360; J2704; C9113 ×3

== ENCOUNTER 2017-02-19 12:53 | Emergency (ER) | payer MEDICARE, BC ==
--- NOTE | 2017-02-19 13:47 | ED ---
General Adult HPI - General Chief complaint: Fall Stated complaint: fall a couple of days ago Time Seen by Provider: 02/19/17 13:11 Source: EMS, RN notes reviewed Mode of arrival: EMS - History of Present Illness Initial comments: Patient 86-year-old female who presents emergency room today with her daughter with chief complaint of fall occurred 3 days ago. Patient does have history of dementia and most history is provided by daughter at bedside. She states that she fell when she was getting up to go to the bathroom 3 days ago. Does admit some bruising some swelling to the right elbow area. Admits that she fractured this approximately a year ago. Patient daughter also states that she called. This morning was complaining about pain to the right hip area. Patient at this time states that she has no complaints and is feeling fine. Patient denies any recent fever, chills, shortness of breath, chest pain, back pain, abdominal pain , nausea or vomiting, numbness or tingling, dysuria or hematuria, constipation or diarrhea, headaches or visual changes, or any other complaints. - Related Data Home Medications Medication Instructions Recorded Confirmed Sertraline HCl [Zoloft] 50 mg PO BID 11/16/13 02/19/17 Aspirin 81 mg PO DAILY 02/03/15 02/19/17 Metoprolol Tartrate [Lopressor] 50 mg PO BID 02/03/15 02/19/17 Potassium Chloride ER [K-Dur 20] 20 meq PO DAILY 07/28/15 02/19/17 levETIRAcetam [Levetiracetam] 500 mg PO BID 07/28/15 02/19/17 Levothyroxine Sodium [Synthroid] 25 mcg PO HS 07/21/16 02/19/17 Atorvastatin [Lipitor] 20 mg PO HS 12/30/16 02/19/17 LORazepam [Ativan] 0.5 mg PO HS 12/30/16 02/19/17 Acetaminophen/Diphenhydramine 1 tab PO HS 02/19/17 02/19/17 [Tylenol PM 500-25mg] Melatonin 5 mg PO HS 02/19/17 02/19/17 Naproxen [Naprosyn] 375 mg PO BID 02/19/17 02/19/17 prednisoLONE ACETATE 1% OPHTH 1 drops BOTH EYES QID 02/19/17 02/19/17 [Pred Forte 1%] Previous Rx's Medication Instructions Recorded Furosemide [Lasix] 20 mg PO DAILY #30 tablet 11/20/13 Losartan [Cozaar] 50 mg PO BID #60 tab 11/20/13 Omeprazole [PriLOSEC] 40 mg PO DAILY #30 capsule. 01/01/17 Allergies Allergy/AdvReac Type Severity Reaction Status Date / Time codeine Allergy Unknown Verified 02/19/17 14:06 Review of Systems ROS Statement: Those systems with pertinent positive or pertinent negative responses have been documented in the HPI. ROS Other: All systems not noted in ROS Statement are negative. 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, past rt breast cancer-no bp rt arm, hx falls.past fx rt humerus( non sx intervention) and in 2004 or 2005 fall w/ closed head injury-on keppra for seizure prevention, recent uti, constipation. djd. History of Any Multi-Drug Resistant Organisms: None Reported Past Surgical History: Breast Surgery, Hysterectomy, Joint Replacement Additional Past Surgical History / Comment(s): left hip replacement, right masectomy Past Anesthesia/Blood Transfusion Reactions: No Reported Reaction Past Psychological History: Depression Smoking Status: Never smoker - Past Family History Father Family Medical History: Cancer Additional Family Medical History / Comment(s): colon cancer Mother History Unknown: Yes Additional Family Medical History / Comment(s): before age 60 pt's daughter not sure of cause General Exam - General Exam Comments Initial Comments: General: The patient is awake and alert, in no distress, and does not appear acutely ill. Eye: Pupils are equal, round and reactive to light, extra-ocular movements are intact. No nystagmus. There is normal conjunctiva bilaterally. No signs of icterus. Ears, nose, mouth and throat: There are moist mucous membranes and no oral lesions. Neck: The neck is supple, there is no tenderness or JVD. Cardiovascular: There is a regular rate and rhythm. No murmur, rub or gallop is appreciated. Respiratory: Lungs are clear to auscultation, respirations are non-labored, breath sounds are equal. No wheezes, stridor, rales, or rhonchi. Musculoskeletal: Patient does have normal appearance the right hip. No shortening or rotation. No tenderness or palpable. Mild tenderness on palpation to the lateral aspect of the right hip. No other bony tenderness on exam. Strength 5/5. Sensation intact. Pulses equal bilaterally 2+. Neurological: A&O x 3. CN II-XII intact, There are no obvious motor or sensory deficits. Coordination appears grossly intact. Speech is normal. Skin: Moderate bruising swelling to the posterior aspect and lateral aspect of the right elbow. Course Vital Signs 02/19/17 02/19/17 02/19/17 13:12 14:27 15:17 Temperature 97.1 F L 97.9 F Pulse Rate 64 67 66 Respiratory 14 16 18 Rate Blood Pressure 165/70 186/76 188/84 O2 Sat by Pulse 95 97 97 Oximetry Medical Decision Making - Medical Decision Making Case discussed in detail with attending physician Dr. Rodriguez. X-ray of the right elbow reviewed and does show comminuted displaced fracture of the supracondylar humerus did discuss this with radiologist Dr. Akbar states there does appear to be new components to this fracture from previous back in July. Patient's x-ray of the right hip shows osteoarthritic changes. No acute fracture. Patient placed in an arm sling here in emergency room. Patient ambulatory here in the emergency room Patient advised to follow-up with orthopedics next 1-2 days. Disposition Clinical Impression: Elbow fracture, right, Hip pain, Fall Disposition: HOME SELF-CARE Condition: Good Instructions: Elbow Fracture in Adults (ED) Additional Instructions: Please follow-up with orthopedics over the next 1-2 days. Please use arm sling when up and moving around. Please return to emergency room for any other concerns. Referrals: Tien Kaur MD [Primary Care Provider] - 1-2 days Isra Peoples MD [Medical Doctor] - 1-2 days Time of Disposition: 15:33
--- NOTE | 2017-02-19 14:19 | XR ---
EXAMINATION TYPE: XR elbow complete RT DATE OF EXAM: 02/19/2017 COMPARISON: NONE HISTORY: Pain post fall FINDINGS: There is soft tissue edema displaced fracture portion humerus which appears comminuted. Diffuse osteo penia noted. Spur noted. IMPRESSION: 1. Comminuted displaced fracture supracondylar humerus.
--- NOTE | 2017-02-19 14:21 | XR ---
EXAMINATION TYPE: XR Hip RT and AP Pelvis DATE OF EXAM: 02/19/2017 COMPARISON: NONE HISTORY: Pain TECHNIQUE: A single AP view of the pelvis is obtained. Two views of the right hip are obtained. FINDINGS: There is postsurgical change involving the left hip. Extensive retained fecal debris in th e rectum. Degenerative change of the spine. There is complete loss of joint space of the right hip compatible severe arthritic changes. SI joints symmetric. Sacrum appears intact. IMPRESSION: 1. Severe arthropathy of the right hip with complete loss of joint space. This may lower diagnostic s ensitivity detecting fracture involving the correlated with CT scan if clinical suspicion. 2. 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
[2017-02-19 15:51] VITALS: BP 172/86; PULSE 72; RESP 16; TEMP 97.8
== END 2017-02-19 15:43 | disposition home or self-care (01) ==
LOC: EEVIPCON 12:53 → EC 12:53
DX: S42.421A Displaced comminuted supracondylar fracture without intercondylar fracture of right humerus, initial encounter for closed fracture (principal); M16.11 Unilateral primary osteoarthritis, right hip; E78.5 Hyperlipidemia, unspecified; I10 Essential (primary) hypertension; E07.9 Disorder of thyroid, unspecified; G40.909 Epilepsy, unspecified, not intractable, without status epilepticus; F32.9 Major depressive disorder, single episode, unspecified; Z79.1 Long term (current) use of non-steroidal anti-inflammatories (NSAID); Z79.52 Long term (current) use of systemic steroids; Z79.82 Long term (current) use of aspirin; Z79.891 Long term (current) use of opiate analgesic; Z79.899 Other long term (current) drug therapy; Z88.5 Allergy status to narcotic agent; Z85.3 Personal history of malignant neoplasm of breast; Z90.11 Acquired absence of right breast and nipple; Z87.39 Personal history of other diseases of the musculoskeletal system and connective tissue; Z86.69 Personal history of other diseases of the nervous system and sense organs; W19.XXXA Unspecified fall, initial encounter; Y92.199 Unspecified place in other specified residential institution as the place of occurrence of the external cause; Y93.89 Activity, other specified
CPT/HCPCS: 73502; 99283